=== PATIENT | female | born 1990 | race Caucasian/White ===

== ENCOUNTER → 2016-08-15 | Outpatient (CLI) | payer OTHER ==
--- NOTE | 2016-08-15 21:27 | US ---
EXAMINATION TYPE: US pelvis complete transvag DATE OF EXAM: 08/15/2016 6:35 PM COMPARISON: Prior in PACS pelvic ultrasound June 10, 2014 CLINICAL HISTORY: R10.2 Pelvic Pain. TECHNIQUE: Transvaginal (TV) and Transabdominal (TA) pelvic ultrasound. Date of LMP: Irregular cycles, spotting today- 08/15/2016 EXAM MEASUREMENTS: Uterus: 7.4 x 4.0 x 4.4 cm Endometrial Stripe: 1.1 cm Right Ovary: 4.2 x 2.7 x 3.1 cm Left Ovary: 2.8 x 1.4 x 2.0 cm TECHNOLOGIST IMPRESSION: 1. Uterus: Anteverted Nabothian cysts visualized within cervix 2. Endometrium: wnl 3. Right Ovary: Cystic area visualized measuring 2.8 x 1.9 x 2.1 cm 4. Left Ovary: wnl 5. Bilateral Adnexa: wnl 6. Posterior cul-de-sac: Small amount of free fluid visualized Uterus is anteverted in shape and within normal limits in size. Endometrial thickness is 11 mm which is within normal limits for secretory phase of menstrual cycle. Some nabothian cysts are seen in the cervix. Tiny amount of free fluid is seen in pelvic cul-de-sac. Both ovaries are identified. Within right ovary there is 2.8 x 1.9 cm oval anechoic lesion consistent with simple small ovarian cyst identified on today's study. IMPRESSION: Endometrial thickness within normal limits. There is new 2.8 cm simple appearing cyst rig ht ovary noted on today's study. Tiny amount of free fluid in pelvic cul-de-sac is nonspecific findin g.
== END | disposition home or self-care (01) ==
LOC: RADUSMAIN 17:53
PROVIDERS: ATTEND Obstetrics & Gynecology
DX: N83.201 Unspecified ovarian cyst, right side (principal)
CPT/HCPCS: 76830; 76856; 93976

== ENCOUNTER → 2016-09-09 | Outpatient (CLI) | payer OTHER ==
[2016-09-09 11:30] LABS: Follicle Stimulating Hormone 8.2 mIU/mL; Prolactin 10.3 ng/mL (3.0-18.6)
[2016-09-09 17:09] LABS: DHEA Sulfate 126.9 ug/dL (26.0-430.0)
== END ==
LOC: LABWHC1 10:45
PROVIDERS: ATTEND Obstetrics & Gynecology
DX: N91.2 Amenorrhea, unspecified (principal)
CPT/HCPCS: 36415; 80061; 82627; 82947; 83001; 83002; 83525; 84146; 84402; 84443

== ENCOUNTER 2016-09-11 10:06 | Emergency (ER) | payer BC, OTHER ==
--- NOTE | 2016-09-11 10:21 | ED ---
General Adult HPI - General Chief complaint: Chest Pain Stated complaint: CHEST PAIN, NAUSEA Time Seen by Provider: 09/11/16 10:20 Source: patient, RN notes reviewed, old records reviewed Mode of arrival: wheelchair Limitations: no limitations - History of Present Illness Initial comments: This is a 26-year-old female the ER for evaluation. Patient comes in the ER for reevaluation nausea vomiting and diarrhea. Patient states symptoms began last night not feeling well, she has had sick contacts with similar symptoms. Patient states it feels like her heart is racing. She denies fever, no change in medications no recent new medications. No travel history no sick contacts no blood in her vomit or stool. - Related Data Home Medications Medication Instructions Recorded Confirmed Aspirin 81 mg PO DAILY 02/01/14 09/11/16 Propranolol [Inderal] 10 mg PO DAILY 02/01/14 09/11/16 Atorvastatin [Lipitor] 10 mg PO HS 02/17/14 09/11/16 Previous Rx's Medication Instructions Recorded Ondansetron [Zofran] 4 mg PO Q8HR PRN #30 tab 09/11/16 Allergies Allergy/AdvReac Type Severity Reaction Status Date / Time [place] Allergy Unknown Verified 09/11/16 10:57 caffeine Allergy MAKES HER Verified 09/11/16 10:57 "TWITCH" garlic Allergy Unknown Verified 09/11/16 10:57 latex Allergy Itching Verified 09/11/16 10:57 Pork/Porcine Containing Allergy Unknown Verified 09/11/16 10:57 Products MUSHROOM Allergy Unknown Uncoded 02/14/16 07:27 SHRIMP Allergy Unknown Uncoded 02/14/16 07:27 Review of Systems ROS Statement: Those systems with pertinent positive or pertinent negative responses have been documented in the HPI. ROS Other: All systems not noted in ROS Statement are negative. Past Medical History Past Medical History: CVA/TIA Additional Past Medical History / Comment(s): polycystic ovaries, irregular heart beat, CYSTS ON KIDNEYS, OCCASIONAL CHESTPAIN , OCCASIONAL SOB. History of Any Multi-Drug Resistant Organisms: None Reported Past Surgical History: Cholecystectomy, Orthopedic Surgery Additional Past Surgical History / Comment(s): LEFT KNEE SURG Past Anesthesia/Blood Transfusion Reactions: Postoperative Nausea & Vomiting ( PONV) Additional Past Anesthesia/Blood Transfusion Reaction / Comment(s): ANXIOUS POST -OP Past Psychological History: No Psychological Hx Reported Smoking Status: Never smoker Past Alcohol Use History: None Reported Past Drug Use History: None Reported General Exam Limitations: no limitations General appearance: alert, in no apparent distress Head exam: Present: atraumatic, normocephalic, normal inspection Eye exam: Present: normal appearance, PERRL, EOMI. Absent: scleral icterus, conjunctival injection, periorbital swelling ENT exam: Present: normal exam, mucous membranes dry, mucous membranes moist Neck exam: Present: normal inspection. Absent: tenderness, meningismus, lymphadenopathy Respiratory exam: Present: normal lung sounds bilaterally. Absent: respiratory distress, wheezes, rales, rhonchi, stridor Cardiovascular Exam: Present: normal rhythm, tachycardia, normal heart sounds. Absent: systolic murmur, diastolic murmur, rubs, gallop, clicks GI/Abdominal exam: Present: soft, normal bowel sounds. Absent: distended, tenderness, guarding, rebound, rigid Extremities exam: Present: normal inspection, full ROM, normal capillary refill. Absent: tenderness, pedal edema, joint swelling, calf tenderness Back exam: Present: normal inspection Neurological exam: Present: alert, oriented X3, CN II-XII intact Psychiatric exam: Present: normal affect, normal mood Skin exam: Present: warm, dry, intact, normal color. Absent: rash Course Vital Signs 09/11/16 09/11/16 09/11/16 10:08 10:21 10:43 Temperature 97.1 F L Pulse Rate 121 H 104 H Pulse Rate [ 119 H Area Field Person ] Respiratory 18 15 Rate Blood Pressure 126/75 102/60 O2 Sat by Pulse 97 96 Oximetry - Reevaluation(s) Reevaluation #1: 09/11/16 11:35 At this point patient's symptoms are controlled EKG Findings - EKG Comments: EKG Findings:: EKG shows sinus tachycardia rate of 118, AK 160, QRS 78, QTC 456 Medical Decision Making - Medical Decision Making 26-year-old year with gastroneuritis, patient will be discharged home with antiemetics and okay to discharge home - Lab Data Result diagrams: 09/11/16 10:22 09/11/16 10:22 Lab Results 09/11/16 09/11/16 09/11/16 Range/Units 10:22 10:22 11:00 WBC 8.0 (3.8-10.6) k/uL RBC 5.82 H (3.80-5.40) m/uL Hgb 16.0 (11.4-16.0) gm/dL Hct 49.6 H (34.0-46.0) % MCV 85.1 (80.0-100.0) fL MCH 27.5 (25.0-35.0) pg MCHC 32.3 (31.0-37.0) g/dL RDW 12.5 (11.5-15.5) % Plt Count 217 (150-450) k/uL Neutrophils % 88 % Lymphocytes % 6 % Monocytes % 4 % Eosinophils % 1 % Basophils % 0 % Neutrophils # 7.0 (1.3-7.7) k/uL Lymphocytes # 0.5 L (1.0-4.8) k/uL Monocytes # 0.3 (0-1.0) k/uL Eosinophils # 0.1 (0-0.7) k/uL Basophils # 0.0 (0-0.2) k/uL Sodium 139 (137-145) mmol/L Potassium 4.0 (3.5-5.1) mmol/L Chloride 99 (98-107) mmol/L Carbon Dioxide 22 (22-30) mmol/L Anion Gap 18 mmol/L BUN 15 (7-17) mg/dL Creatinine 0.55 (0.52-1.04) mg/dL Est GFR (MDRD) Af Amer >60 (>60 ml/min/1.73 sqM) Est GFR (MDRD) Non-Af >60 (>60 ml/min/1.73 sqM) Glucose 385 H (74-99) mg/dL Calcium 9.3 (8.4-10.2) mg/dL Phosphorus 4.6 H (2.5-4.5) mg/dL Magnesium 1.6 (1.6-2.3) mg/dL Total Bilirubin 1.5 H (0.2-1.3) mg/dL AST 31 (14-36) U/L ALT 55 H (9-52) U/L Alkaline Phosphatase 90 (38-126) U/L Total Protein 8.0 (6.3-8.2) g/dL Albumin 4.5 (3.5-5.0) g/dL Urine Color Yellow Urine Appearance Clear (Clear) Urine pH 5.5 (5.0-8.0) Ur Specific [place] 1.035 (1.001-1.035) Urine Protein 1+ H (Negative) Urine Glucose (UA) 4+ H (Negative) Urine Ketones 1+ H (Negative) Urine Blood Trace H (Negative) Urine Nitrate Negative (Negative) Urine Bilirubin Negative (Negative) Urine Urobilinogen <2.0 (<2.0) mg/dL Ur Leukocyte Esterase Small H (Negative) Urine RBC 8 H (0-5) /hpf Urine WBC 5 (0-5) /hpf Ur Squamous Epith Cells 5 H (0-4) /hpf Urine Bacteria Rare H (None) /hpf Disposition Clinical Impression: Gastroenteritis, Nausea & vomiting Disposition: HOME SELF-CARE Condition: Good Instructions: Abdominal Pain in Children (ED) Prescriptions: Ondansetron [Zofran] 4 mg PO Q8HR PRN #30 tab PRN Reason: Nausea Referrals: Peter Craig MD [Primary Care Provider] - 1-2 days
[2016-09-11] MEDS: ONDANSETRON 4 MG/2 ML VIAL IVP STA ×2 (10:29→11:51)
[2016-09-11] MEDS ORDERED: SODIUM CHLORIDE 0.9% 1,000 ML IV STA (10:30)
[2016-09-11] MEDS ORDERED: ACETAMINOPHEN IV (For NPO) 1,000 MG in EMPTY BAG 1 BAG IVPB STA (10:30)
[2016-09-11] MEDS ORDERED: KETOROLAC 30 MG/ML 1 ML VIAL IVP STA (10:30)
[2016-09-11] MEDS ORDERED: PANTOPRAZOLE 40 MG/10 ML VIAL IVP STA (10:30)
[2016-09-11 10:41] LABS: Basophils % (A) 0 %; CH 28.6; CHCM 33.8; Eosinophils # (A) 0.1 k/uL (0-0.7); Eosinophils % (A) 1 %; HCT 49.6 % (34.0-46.0); HDW 2.64; Luc # (Auto) 0.09; Luc % (Auto) 1; Lymphocytes # (A) 0.5 k/uL (1.0-4.8); Lymphocytes % (A) 6 %; MCH 27.5 pg (25.0-35.0); MCHC 32.3 g/dL (31.0-37.0); MCV 85.1 fL (80.0-100.0); Mean Platelet Volume 9.1; Monocytes # (A) 0.3 k/uL (0-1.0); Monocytes % (A) 4 %; Neutrophils % (A) 88 %; RBC 5.82 m/uL (3.80-5.40); RDW 12.5 % (11.5-15.5); WBC (Perox) 7.84
[2016-09-11 10:57] LABS: ALT 55 U/L (9-52); AST 31 U/L (14-36); Alkaline Phosphatase 90 U/L (38-126); Anion Gap 18 mmol/L; Blood Urea Nitrogen 15 mg/dL (7-17); Calcium 9.3 mg/dL (8.4-10.2); Carbon Dioxide 22 mmol/L (22-30); Chloride 99 mmol/L (98-107); Glucose 385 mg/dL (74-99); Magnesium 1.6 mg/dL (1.6-2.3); Non-African American GFR(MDRD) >60 (>60 ml/min/1.73 sqM); Phosphorous 4.6 mg/dL (2.5-4.5); Sodium 139 mmol/L (137-145); Total Bilirubin 1.5 mg/dL (0.2-1.3)
[2016-09-11 11:31] LABS: Appearance,Urine Clear (Clear); Bacteria,Urine Rare /hpf; Bilirubin,Urine Negative (Negative); Glucose,Urine (UA) 4+ (Negative); Ketones,Urine 1+ (Negative); Leukocyte Esterase,Urine Small (Negative); Nitrite,Urine Negative (Negative); PH, Urine 5.5 (5.0-8.0); Particle Count 3172; Protein,Urine 1+ (Negative); RBC,Urine 8 /hpf (0-5); Specific Gravity,Urine 1.035 (1.001-1.035); Squamous Epithelial Cell,Urine 5 /hpf (0-4); UA Billing (MACRO vs. MICRO) MICRO; Urobilinogen,Urine <2.0 mg/dL (<2.0); WBC,Urine 5 /hpf (0-5)
[2016-09-11 11:50] VITALS: RESP 18
[2016-09-11 12:26] VITALS: BP 98/54; PULSE 80; TEMP 97.7
== END 2016-09-11 12:37 | disposition home or self-care (01) ==
LOC: EC 10:06
DX: K52.9 Noninfective gastroenteritis and colitis, unspecified (principal); Z79.82 Long term (current) use of aspirin; Z79.899 Other long term (current) drug therapy; Z91.018 Allergy to other foods; Z91.040 Latex allergy status; Z91.013 Allergy to seafood; Z91.02 Food additives allergy status; I49.9 Cardiac arrhythmia, unspecified; Z86.73 Personal history of transient ischemic attack (TIA), and cerebral infarction without residual deficits
CPT/HCPCS: 99285; 96365; 96375 ×3; 96361 ×2; 36415; 93005; 80053; 83735; 84100; 85025; 81001; 87086; J2405; J1885; J0131; C9113; 74022; 82009; 82150; 83036; 83690; 84703; 87328; 87329; 96372; 96374; 96376

== ENCOUNTER 2016-09-11 13:44 | Observation (INO) | payer BC ==
[2016-09-11] MEDS ORDERED: SODIUM CHLORIDE 0.9% 1,000 ML IV STA ×2 (15:04)
[2016-09-11] MEDS ORDERED: METOCLOPRAMIDE 5 MG/ML 2 ML VIAL IVP STA (15:04)
[2016-09-11] MEDS ORDERED: INSULIN REGULAR 100 UNIT/ML VIAL SQ STA (15:07)
[2016-09-11 15:29] LABS: Glucose,Whole Blood 316 mg/dL (75-99)
[2016-09-11 15:45] LABS: Amylase <30 U/L (30-110)
[2016-09-11 15:56] LABS: HCG,Qualitative Serum Not Detected
--- NOTE | 2016-09-11 16:39 | XR ---
EXAMINATION TYPE: XR abdomen acute w cxr DATE OF EXAM: 09/11/2016 4:27 PM COMPARISON: NONE HISTORY: Pain TECHNIQUE: Supine, upright, and left side down lateral decubitus views of the abdomen are obtained. FINDINGS: There is no evidence for pneumoperitoneum. The bowel gas pattern is unremarkable as there is air throughout nondilated small and large bowel. No sizeable air fluid levels. No mass effects are seen. No unusual calcifications. Scoliotic curvature noted. IMPRESSION: Unremarkable study
--- NOTE | 2016-09-11 16:58 | ED ---
General Adult HPI - General Chief complaint: Recheck/Abnormal Lab/Rx Stated complaint: Sent by Dr Alex/ketoacidosis Time Seen by Provider: 09/11/16 14:52 Source: patient Mode of arrival: ambulatory Limitations: no limitations - History of Present Illness Initial comments: This 26-year-old white female presents complaining of nausea vomiting and diarrhea. This came on last evening. It occurred after eating dinner. She states that she had some sick contacts recently. She complains of a diffuse abdominal pain as well. She denies any fever or chills. She denies any recent known infections. She was seen in the emergency department this morning and was hydrated and received antiemetics. She had a laboratory workup which did show an elevation of the blood sugar at 385. She was feeling much improved after treatment in the ER and was on the way home. She did receive a call from Dr. Santo from [facility]. She had a fasting blood glucose done this past weekend and apparently the blood sugar is quite elevated. They sent her back to the emergency department for further evaluation and treatment. She relates that while she was feeling much improved earlier today after her visit her nausea and vomiting has recurred. She denies any history of previous diabetes. 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 - Related Data Home Medications Medication Instructions Recorded Confirmed Aspirin 81 mg PO DAILY 02/01/14 09/11/16 Propranolol [Inderal] 10 mg PO DAILY 02/01/14 09/11/16 Atorvastatin [Lipitor] 10 mg PO HS 02/17/14 09/11/16 Previous Rx's Medication Instructions Recorded Ondansetron [Zofran] 4 mg PO Q8HR PRN #30 tab 09/11/16 Allergies Allergy/AdvReac Type Severity Reaction Status Date / Time [place] Allergy Unknown Verified 09/11/16 14:50 caffeine Allergy MAKES HER Verified 09/11/16 14:50 "TWITCH" garlic Allergy Unknown Verified 09/11/16 14:50 latex Allergy Itching Verified 09/11/16 14:50 Mushroom Allergy Unknown Verified 09/11/16 14:50 Pork/Porcine Containing Allergy Unknown Verified 09/11/16 14:50 Products shellfish derived [Shellfish] Allergy Unknown Verified 09/11/16 14:50 Review of Systems ROS Statement: Those systems with pertinent positive or pertinent negative responses have been documented in the HPI. ROS Other: All systems not noted in ROS Statement are negative. Past Medical History Past Medical History: CVA/TIA Additional Past Medical History / Comment(s): polycystic ovaries, irregular heart beat, CYSTS ON KIDNEYS, OCCASIONAL CHESTPAIN , OCCASIONAL SOB. History of Any Multi-Drug Resistant Organisms: None Reported Past Surgical History: Cholecystectomy, Orthopedic Surgery Additional Past Surgical History / Comment(s): LEFT KNEE SURG Past Anesthesia/Blood Transfusion Reactions: Postoperative Nausea & Vomiting ( PONV) Additional Past Anesthesia/Blood Transfusion Reaction / Comment(s): ANXIOUS POST -OP Past Psychological History: No Psychological Hx Reported Smoking Status: Never smoker Past Alcohol Use History: None Reported Past Drug Use History: None Reported General Exam - General Exam Comments Initial Comments: GENERAL: The patient is well nourished and well hydrated. VITAL SIGNS: Heart rate, blood pressure, respiratory rate reviewed as recorded in nurse's notes. EYES: Pupils are round and reactive. Extraocular movements are intact. No conjunctival / lid redness or swelling. ENT: No external evidence of injury, swelling, or ecchymosis. Airway is patent. Throat is clear. NECK: Nontender. No swelling or evidence of injury. No subcutaneous emphysema. Trachea is midline. No thyroid mass. HEART: Regular rate and rhythm. Good peripheral pulses. LUNGS/CHEST: Breath sounds clear and equal bilaterally. No rales, rhonchi, or wheezes. No ecchymosis, subcutaneous emphysema, or tenderness. ABDOMEN: There is mild tenderness to the abdomen diffusely. No peritoneal signs. No abdominal wall swelling or ecchymosis. EXTREMITIES: No extremity tenderness. Normal muscle tone and function. No thoracolumbar tenderness. NEUROLOGIC: Sensation is grossly intact. Cranial nerve exam reveals face is symmetrical, tongue is midline, speech is clear. SKIN: No abrasions or ecchymosis is noted. No induration or masses noted. PSYCHIATRIC: Alert and oriented. Appropriate behavior and judgment. Limitations: no limitations Course Vital Signs 09/11/16 14:22 Temperature 98.0 F Pulse Rate 99 Respiratory 18 Rate Blood Pressure 113/72 O2 Sat by Pulse 97 Oximetry Medical Decision Making - Medical Decision Making The patient was seen and examined. All diagnostics were reviewed. The old records from earlier today were also reviewed. Her blood sugar is still elevated and she received some insulin subcu. She also receives an IV with IV fluid hydration and Reglan for nausea. It is felt as though she has new-onset diabetes and will need treatment for this. In addition she has failed outpatient treatment for her nausea and vomiting and diarrhea issues. Is felt as though she will require admission to the hospital. Case will be discussed with internal medicine in the near future and patient will be admitted to the general medical floor for definitive treatment. - Lab Data Lab Results 09/11/16 09/11/16 Range/Units 15:15 15:24 POC Glucose (mg/dL) 316 H (75-99) mg/dL POC Glu [place]ania No Amylase <30 L (30-110) U/L Lipase 63 (23-300) U/L HCG, Qual Not Detected Disposition Clinical Impression: Nausea vomiting and diarrhea, Gastroenteritis, Dehydration, Diabetes mellitus, new onset, Acute hyperglycemia, Abdominal pain, Solitary kidney, congenital Disposition: ADMITTED IP TO THIS [facility] Condition: Fair Time of Disposition: 16:57 Decision Date: 09/11/16 Decision Time: 16:57
[2016-09-11] MEDS ORDERED: ONDANSETRON 4 MG/2 ML VIAL IVP PRN (17:03)
[2016-09-11] MEDS ORDERED: NALOXONE 0.4 MG/ML 1 ML VIAL IV PRN (17:03)
[2016-09-11] MEDS ORDERED: HYDROmorphone 1 MG/ML 1 ML SYRINGE IV PRN (17:03)
[2016-09-11] MEDS ORDERED: ACETAMINOPHEN TAB 325 MG TAB PO PRN (17:03)
[2016-09-11] MEDS ORDERED: METOCLOPRAMIDE 5 MG/ML 2 ML VIAL IVP PRN (17:07)
[2016-09-11 18:12] LABS: Glucose,Whole Blood 254 mg/dL (75-99)
[2016-09-11 20:31] LABS: Glucose,Whole Blood 225 mg/dL (75-99)
[2016-09-11] MEDS: ATORVASTATIN 10 MG TAB PO SCH (21:00)
[2016-09-11] MEDS: INSULIN LISPRO (humaLOG) 300 UNIT/3 ML VIAL SQ SCH (21:01)
[2016-09-11 22:47] LABS: Hemoglobin A1C 11.1 % (4.2-6.1)
[2016-09-11] MEDS: ENOXAPARIN 40 MG/0.4 ML SYRINGE SQ SCH (22:56)
[2016-09-12 02:10] LABS: Glucose,Whole Blood 224 mg/dL (75-99)
[2016-09-12 07:05] LABS: Glucose,Whole Blood 243 mg/dL (75-99)
[2016-09-12 07:43] LABS: ALT 59 U/L (9-52); AST 38 U/L (14-36); Alkaline Phosphatase 60 U/L (38-126); Anion Gap 10 mmol/L; Blood Urea Nitrogen 9 mg/dL (7-17); Calcium 7.8 mg/dL (8.4-10.2); Carbon Dioxide 23 mmol/L (22-30); Chloride 107 mmol/L (98-107); Glucose 251 mg/dL (74-99); Non-African American GFR(MDRD) >60 (>60 ml/min/1.73 sqM); Potassium 3.6 mmol/L (3.5-5.1); Sodium 140 mmol/L (137-145); Total Bilirubin 0.9 mg/dL (0.2-1.3); Total Protein 6.2 g/dL (6.3-8.2)
[2016-09-12] MEDS: INSULIN LISPRO (humaLOG) 300 UNIT/3 ML VIAL SQ SCH ×4 (07:58→21:46)
[2016-09-12] MEDS: PROPRANOLOL 10 MG TAB PO SCH (08:00)
[2016-09-12] MEDS: ASPIRIN 81 MG CHEW PO SCH (08:00)
[2016-09-12] MEDS: ENOXAPARIN 40 MG/0.4 ML SYRINGE SQ SCH (08:00)
[2016-09-12] MEDS: PANTOPRAZOLE 40 MG/10 ML VIAL IV SCH (08:00)
[2016-09-12 08:23] LABS: Basophils % (A) 0 %; CH 28.3; Eosinophils # (A) 0.1 k/uL (0-0.7); Eosinophils % (A) 2 %; HDW 2.68; HGB 13.5 gm/dL (11.4-16.0); Luc # (Auto) 0.11; Luc % (Auto) 3; Lymphocytes # (A) 1.2 k/uL (1.0-4.8); Lymphocytes % (A) 32 %; MCH 27.7 pg (25.0-35.0); MCHC 32.2 g/dL (31.0-37.0); MCV 86.1 fL (80.0-100.0); Mean Platelet Volume 8.1; Monocytes # (A) 0.2 k/uL (0-1.0); Monocytes % (A) 5 %; Neutrophils # (A) 2.1 k/uL (1.3-7.7); Neutrophils % (A) 58 %; RBC 4.87 m/uL (3.80-5.40); RDW 12.5 % (11.5-15.5); WBC 3.7 k/uL (3.8-10.6)
[2016-09-12] MEDS ORDERED: INSULIN NPL/INSULIN LISPRO 100 UNIT/ML 10 ML VIAL (Humalog 75/25) SQ SCH (09:00)
[2016-09-12] MEDS ORDERED: ENOXAPARIN 40 MG/0.4 ML SYRINGE SQ SCH (09:00)
--- NOTE | 2016-09-12 10:11 | HP ---
DATE OF ADMISSION: 09/11/2016 PRESENTING COMPLAINT: Diarrhea. HISTORY OF PRESENTING COMPLAINT: This is a pleasant 26-year-old patient of Dr. Craig out of [facility]. Patient has diagnosis of polycystic ovarian syndrome. Patient only has one kidney. Her other destroyed by cyst. She thinks she has a diagnosis of polycystic kidney disease. The patient had high sugars in the past and was taking metformin which gave her diarrhea; hence, she stopped taking it. Patient had pizza last night and developed severe diarrhea. No blood. Diffuse abdominal pain, nausea, no vomiting. Did not have fever. Came to the ER and found to have sugars up in the 300s. Serum acetone was negative. Patient does get up at night at least 3 or 4 times a week, which has been going on for a long time. REVIEW OF SYSTEMS: CONSTITUTIONAL: Weak, tired, and dizzy. HEENT: Dry mucous membrane. NECK: None. RESPIRATORY: None. CARDIOVASCULAR: None. GASTROINTESTINAL: As above. GENITOURINARY: None. MUSCULOSKELETAL: None. DERMATOLOGICAL: None. HEMATOLOGICAL: None. LYMPHATIC: None. PSYCHIATRY: None. NEUROLOGICAL: None. Past medical history of polycystic ovarian syndrome, irregular heartbeat, kidney cysts, mini stroke questionable. PAST SURGICAL HISTORY: Cholecystectomy, left knee meniscal surgery, ACL surgery. SOCIAL HISTORY: , has no children of her own. Adopted children. Patient works as licensed acupuncturist. No alcohol. No smoking. FAMILY HISTORY: Mother had gestational diabetes. HOME MEDICATIONS: 1. Inderal 10 mg p.o. daily. 2. Zofran 4 mg p.o. q.8 p.r.n. 3. Lipitor 10 mg p.o. q.h.s. 4. Aspirin 81 mg p.o. daily. ALLERGY TO ALMOND, CAFFEINE, GARLIC, LATEX, MUSHROOM, PORK, SHELLFISH. On examination, temperature 98, pulse 99, respirations 18, blood pressure 103/72, pulse 97% on room air. GENERAL APPEARANCE: Overweight BMI of 34.5, lying in bed. EYES: Pupils equal. Conjunctivae normal. HEENT: Oral cavity dry. Mucous membranes otherwise normal. NECK: JVD not raised. Mass not palpable. RESPIRATORY: Effort normal. Lungs with fair entry. CARDIOVASCULAR: ( ) edema. ABDOMEN: Soft, diffuse tenderness. No guarding or rigidity. Liver and spleen not palpable. LYMPHATIC: No lymph nodes palpable in neck or axillae. PSYCHIATRIC: Alert and oriented x3. Mood and affect normal. INVESTIGATIONS: Glucose 316, amylase less than 30, lipase 63. hCG negative. Serum acetone negative. ASSESSMENT: 1. Acute severe gastroenteritis. This could be food poisoning. Patient did have [employer] pizza. 2. New diagnosis of diabetes mellitus, could be type 1 given the young age, though would have expect patient to be ketotic. 3. Obesity, body mass index of 34.5. 4. Polycystic ovarian syndrome. PLAN: Patient will be aggressively hydrated. Patient was put on clear liquids. Stool will be sent off for ova and parasites. Will start the patient on 50 units of 75/25 twice a day. We will get diabetic education and will have the patient see dietitian and take it from there.
[2016-09-12 11:21] LABS: Glucose,Whole Blood 228 mg/dL (75-99)
[2016-09-12 11:42] VITALS: BMI 34.4
[2016-09-12 16:49] LABS: Glucose,Whole Blood 98 mg/dL (75-99)
[2016-09-12 20:34] LABS: Glucose,Whole Blood 127 mg/dL (75-99)
[2016-09-12] MEDS: INSULIN NPL/INSULIN LISPRO 100 UNIT/ML 10 ML VIAL (Humalog 75/25) SQ SCH (21:45)
[2016-09-12] MEDS: ATORVASTATIN 10 MG TAB PO SCH (21:46)
[2016-09-12 22:59] VITALS: RESP 16
--- NOTE | 2016-09-12 23:19 | PN ---
DATE OF SERVICE: 09/12/2016 PRESENTING COMPLAINT: Diarrhea, new onset of diabetes. INTERVAL HISTORY: This patient presented with severe gastroenteritis and is actually getting better. Also a new diagnosis of diabetes mellitus, type 1. Patient was started on 70/30 today. Feeling somewhat better. Sugars have been a little bit up and down. is at the bedside. Diabetic education was done. Review of systems done for constitutional, cardiovascular, GI, pulmonary; relevant findings as above. Current medications include Humalog Mix 75/25, 15 units twice a day. On examination, temperature 98.7, pulse 75, respiration 18, blood pressure 100/57, pulse ox 96% on room air. GENERAL APPEARANCE: Sitting up, not in distress. EYES: Pupils equal. Conjunctivae normal. NECK: JVD not raised. Mass not palpable. RESPIRATORY: Effort normal. Lungs are clear. CARDIOVASCULAR: First and second seconds normal. No edema. ABDOMEN: Soft, nontender. Liver and spleen not palpable. PSYCHIATRY: Alert and oriented x3. Mood and affect normal. INVESTIGATIONS: Accu-Cheks are noted, 243, 228, 98. ASSESSMENT: 1. Acute severe gastroenteritis/food poisoning, improved. 2. Diabetes mellitus, type 1; new diagnosis. 3. Obesity; body mass index 34.5. 4. Polycystic ovarian syndrome. PLAN: Continue with the current dose of 70/25 insulin. Will see how the sugars do and then will decide what dose to send the patient home on.
[2016-09-13 02:14] LABS: Glucose,Whole Blood 136 mg/dL (75-99)
[2016-09-13 06:55] LABS: Glucose,Whole Blood 186 mg/dL (75-99)
[2016-09-13 07:48] VITALS: BP 102/59; PULSE 79; TEMP 97.9
[2016-09-13] MEDS: ENOXAPARIN 40 MG/0.4 ML SYRINGE SQ SCH (08:11)
[2016-09-13] MEDS: INSULIN LISPRO (humaLOG) 300 UNIT/3 ML VIAL SQ SCH ×2 (08:11→12:15)
[2016-09-13] MEDS: ASPIRIN 81 MG CHEW PO SCH (08:13)
[2016-09-13] MEDS: PROPRANOLOL 10 MG TAB PO SCH (08:13)
[2016-09-13] MEDS: PANTOPRAZOLE 40 MG/10 ML VIAL IV SCH (08:13)
[2016-09-13] MEDS: INSULIN NPL/INSULIN LISPRO 100 UNIT/ML 10 ML VIAL (Humalog 75/25) SQ SCH (08:23)
[2016-09-13 12:06] LABS: Glucose,Whole Blood 201 mg/dL (75-99)
[2016-09-14] MEDS ORDERED: PANTOPRAZOLE 40 MG TABLET PO SCH (07:30)
--- NOTE | 2016-09-14 08:44 | DS ---
DATE OF ADMISSION: 09/11/2016 DATE OF DISCHARGE: 09/13/2016 FINAL DIAGNOSES: 1. Acute severe gastroenteritis/food poisoning present on admission. 2. Diabetes mellitus type 1, new diagnosis. 3. Obesity, body mass index of 34.5. 4. Polycystic ovarian syndrome. HOSPITAL COURSE: This patient presented with what appeared to be acute gastroenteritis that did get better. Sugars have been running high. Patient was nonketotic when she presented. Patient was put on 70/30. Today care was discussed in detail with the patient, talking about the meal size, timing insulin, how to keep a log. On examination, lungs are clear. CARDIOVASCULAR: First and second sounds normal. Patient's Hb-A1c was 11.1. DISCHARGE MEDICATIONS: 1. Aspirin 81 mg daily. 2. Inderal 10 mg a day. 3. Lipitor 10 mg q.h.s. 4. Zofran 4 mg p.o. q.8 p.r.n. 5. NovoLog Mix 70/30 twenty units with breakfast, six units with lunch and twenty units before supper . DIET: Carbohydrate consistent. Follow with Dr. Craig on 09/20/2016. Follow with Dr. Akanksha Tyler in 1 week. DC planning more than 35 minutes.
== END 2016-09-13 17:30 | disposition home or self-care (01) ==
LOC: EC 13:44 → 5MS5E 17:03
PROVIDERS: ADMIT Hospitalist; ATTEND Hospitalist
DX: K52.9 Noninfective gastroenteritis and colitis, unspecified (principal); E10.65 Type 1 diabetes mellitus with hyperglycemia; T62.91XA Toxic effect of unspecified noxious substance eaten as food, accidental (unintentional), initial encounter; E66.9 Obesity, unspecified; Z68.34 Body mass index [BMI] 34.0-34.9, adult; Q60.0 Renal agenesis, unilateral; E28.2 Polycystic ovarian syndrome; E86.0 Dehydration; I49.9 Cardiac arrhythmia, unspecified; Z79.899 Other long term (current) drug therapy; Z79.82 Long term (current) use of aspirin; Z86.73 Personal history of transient ischemic attack (TIA), and cerebral infarction without residual deficits; Z91.040 Latex allergy status; Z91.018 Allergy to other foods; Z91.013 Allergy to seafood
CPT/HCPCS: 36415; 80053; 82150; 83036; 82009; 83690; 85025; 84703; 87329; 87328; 74022; 96374; 96375; 96361 ×3; 99285; G0378 ×3; J2765; J2405; J1650 ×3; C9113 ×2; 96372; 96376

== ENCOUNTER 2017-05-16 23:32 | Emergency (ER) | payer BC ==
[2017-05-17] MEDS ORDERED: IPRATROPIUM-ALBUTEROL 3 ML NEB INHALATION STA (00:05)
[2017-05-17] MEDS ORDERED: MECLIZINE 12.5 MG TAB PO STA (00:05)
[2017-05-17] MEDS ORDERED: methylPREDNISolone SOD SUCCI 125 MG/2 ML VIAL IV STA (00:05)
--- NOTE | 2017-05-17 00:33 | ED ---
General Adult HPI - General Chief complaint: Chest Pain Stated complaint: L Ear Clogged Time Seen by Provider: 05/16/17 23:41 Source: patient, RN notes reviewed, old records reviewed Mode of arrival: ambulatory Limitations: no limitations - History of Present Illness Initial comments: 26-year-old female presents emergency Department chief complaint of left ear pain and clogging, upper respiratory congestion, cough for 3 weeks. Patient reports that she's had some shortness of breath and chest pain episode with her cough today. She denies any known history of asthma. She states that she has no history of sick contacts. She reports her cough is been dry, nonproductive. Patient is diabetic. Patient denies any recent fever, chills, back pain, abdominal pain, nausea vomiting, numbness or tingling, dysuria or hematuria, constipation or diarrhea, headaches or visual changes, or any other current symptoms - Related Data Home Medications Medication Instructions Recorded Confirmed Aspirin 81 mg PO DAILY 02/01/14 05/16/17 Propranolol [Inderal] 10 mg PO DAILY 02/01/14 05/16/17 Atorvastatin [Lipitor] 10 mg PO HS 02/17/14 05/16/17 Previous Rx's Medication Instructions Recorded Ondansetron [Zofran] 4 mg PO Q8HR PRN #30 tab 09/11/16 Insulin Aspart Protam & Aspart 100 unit SQ DIRECTED #1 09/13/16 [NovoLOG MIX 70-30 Flexpen] insuln.pen Albuterol Inhaler [Ventolin Hfa 1 - 2 puff INHALATION Q6HR PRN #1 05/17/17 Inhaler] inhaler Azithromycin [Zithromax Z-pack] 250 mg PO DIRECTED #6 tab 05/17/17 Ketorolac [Toradol] 10 mg PO Q6HR #12 tab 05/17/17 Promethazine/Dextromethorphan 5 ml PO TID #120 ml 05/17/17 [Phenergan DM Syrup] predniSONE 50 mg PO DAILY #5 tablet 05/17/17 Allergies Allergy/AdvReac Type Severity Reaction Status Date / Time [place] Allergy Unknown Verified 05/16/17 23:35 caffeine Allergy MAKES HER Verified 05/16/17 23:35 "TWITCH" garlic Allergy Unknown Verified 05/16/17 23:35 latex Allergy Rash/Hives Verified 05/16/17 23:35 Mushroom Allergy Unknown Verified 05/16/17 23:35 peanut Allergy Rash/Hives Verified 05/16/17 23:35 Pork/Porcine Containing Allergy Unknown Verified 05/16/17 23:35 Products shellfish derived [Shellfish] Allergy Unknown Verified 05/16/17 23:35 tree nut [Nut] Allergy Rash/Hives Verified 05/16/17 23:35 Review of Systems ROS Statement: Those systems with pertinent positive or pertinent negative responses have been documented in the HPI. ROS Other: All systems not noted in ROS Statement are negative. Past Medical History Past Medical History: CVA/TIA Additional Past Medical History / Comment(s): polycystic ovaries, irregular heart beat, CYSTS ON KIDNEYS, OCCASIONAL CHESTPAIN , OCCASIONAL SOB.(UTI-ECOLI) , TIA History of Any Multi-Drug Resistant Organisms: None Reported Past Surgical History: Cholecystectomy, Orthopedic Surgery Additional Past Surgical History / Comment(s): LEFT KNEE SURG MENISCUS, ACL. Past Anesthesia/Blood Transfusion Reactions: Postoperative Nausea & Vomiting ( PONV) Additional Past Anesthesia/Blood Transfusion Reaction / Comment(s): ANXIOUS POST -OP Past Psychological History: No Psychological Hx Reported Smoking Status: Never smoker Past Alcohol Use History: None Reported Past Drug Use History: None Reported - Past Family History Father Family Medical History: No Reported History Mother Family Medical History: CVA/TIA, Diabetes Mellitus, Myocardial Infarction ([place]) General Exam - General Exam Comments Initial Comments: Well-appearing 26-year-old female. No distress. Limitations: no limitations General appearance: alert, in no apparent distress Head exam: Present: atraumatic, normocephalic, normal inspection Eye exam: Present: normal appearance, PERRL, EOMI. Absent: scleral icterus, conjunctival injection, periorbital swelling ENT exam: Present: normal exam, mucous membranes moist Neck exam: Present: normal inspection. Absent: tenderness, meningismus, lymphadenopathy Respiratory exam: Present: normal lung sounds bilaterally. Absent: respiratory distress, wheezes, rales, rhonchi, stridor Cardiovascular Exam: Present: regular rate, normal rhythm, normal heart sounds. Absent: systolic murmur, diastolic murmur, rubs, gallop, clicks GI/Abdominal exam: Present: soft, normal bowel sounds. Absent: distended, tenderness, guarding, rebound, rigid Extremities exam: Present: normal inspection, full ROM, normal capillary refill. Absent: tenderness, pedal edema, joint swelling, calf tenderness Back exam: Present: normal inspection Neurological exam: Present: alert, oriented X3, CN II-XII intact Course Vital Signs 05/16/17 05/17/17 05/17/17 23:34 00:44 00:55 Temperature 97.9 F Pulse Rate 107 H 88 84 Respiratory 20 Rate Blood Pressure 144/61 O2 Sat by Pulse 97 Oximetry 05/17/17 05/17/17 02:10 02:33 Temperature 97.3 F L Pulse Rate 91 Respiratory 18 Rate Blood Pressure 111/59 O2 Sat by Pulse 96 Oximetry Medical Decision Making - Medical Decision Making Patient is a 26-year-old female chief complaint of occasional chest pain, shortness of breath and cough for 3 weeks. Patient did have some minor wheezing noted on initial exam. DuoNeb treatment ordered. Vital signs are all stable. She does have history of diabetes. Patient's labwork was reviewed, mildly elevated white blood count 12.1. Her troponin is negative. EKG is negative. Chest x-ray shows a developing bilateral lower lobe pneumonia. Patient was given IV Rocephin. Will be discharged on azithromycin, and steroids. Patient was also given a [facility] emergency department. Discussed very close follow-up with primary care provider. Discussed if any persistent symptoms continue or should they worsen she needs return to the emergency department for admission. Patient understands treatment plan will comply. Return parameters were discussed. She also states chart with an inhaler, and cough syrup. Written a note for work. - Lab Data Result diagrams: 05/17/17 00:37 Lab Results 05/17/17 05/17/17 Range/Units 00:37 00:37 WBC 12.1 H (3.8-10.6) k/uL RBC 4.38 (3.80-5.40) m/uL Hgb 11.9 (11.4-16.0) gm/dL Hct 36.0 (34.0-46.0) % MCV 82.3 (80.0-100.0) fL MCH 27.2 (25.0-35.0) pg MCHC 33.0 (31.0-37.0) g/dL RDW 14.0 (11.5-15.5) % Plt Count 256 (150-450) k/uL Neutrophils % 77 % Lymphocytes % 15 % Monocytes % 4 % Eosinophils % 3 % Basophils % 0 % Neutrophils # 9.3 H (1.3-7.7) k/uL Lymphocytes # 1.8 (1.0-4.8) k/uL Monocytes # 0.5 (0-1.0) k/uL Eosinophils # 0.4 (0-0.7) k/uL Basophils # 0.0 (0-0.2) k/uL Troponin I <0.012 (0.000-0.034) ng/mL 05/17/17 01:08 EKG shows normal sinus rhythm, ventricular rate of 89 bpm. IA interval 22 ms. QRS duration 80 ms. QT QTc is 370/450 ms. - Radiology Data Radiology results: report reviewed Chest x-ray shows a new bilateral lower lobe pneumonia compared to last exam. Normal heart, there are some infiltrate in the lingula of the left upper lobe. Disposition Clinical Impression: Bilateral pneumonia Disposition: HOME SELF-CARE Condition: Good Instructions: Community Acquired Pneumonia (ED) Additional Instructions: Patient advised to rest, increase her fluid intake. Patient needs to maintain tight control of your blood sugar with insulin sliding scale. Completely anabiotic prescription and use steroids and medicines as prescribed. Patient should follow-up tomorrow morning or the next day with her primary care provider. Return to the emergency department if any alarming signs or symptoms occur. Prescriptions: Albuterol Inhaler [Ventolin Hfa Inhaler] 1 - 2 puff INHALATION Q6HR PRN #1 inhaler PRN Reason: Shortness Of Breath Azithromycin [Zithromax Z-pack] 250 mg PO DIRECTED #6 tab Ketorolac [Toradol] 10 mg PO Q6HR #12 tab predniSONE 50 mg PO DAILY #5 tablet Promethazine/Dextromethorphan [Phenergan DM Syrup] 5 ml PO TID #120 ml Referrals: Peter Craig MD [Primary Care Provider] - 1-2 days Time of Disposition: 01:58
[2017-05-17 00:48] LABS: Basophils % (A) 0 %; CH 26.2; Eosinophils # (A) 0.4 k/uL (0-0.7); Eosinophils % (A) 3 %; HDW 2.64; HGB 11.9 gm/dL (11.4-16.0); Luc # (Auto) 0.09; Luc % (Auto) 1; Lymphocytes # (A) 1.8 k/uL (1.0-4.8); Lymphocytes % (A) 15 %; MCH 27.2 pg (25.0-35.0); MCV 82.3 fL (80.0-100.0); Mean Platelet Volume 8.5; Monocytes # (A) 0.5 k/uL (0-1.0); Monocytes % (A) 4 %; Neutrophils # (A) 9.3 k/uL (1.3-7.7); Neutrophils % (A) 77 %; RBC 4.38 m/uL (3.80-5.40); WBC 12.1 k/uL (3.8-10.6); WBC (Perox) 12.49
[2017-05-17] MEDS ORDERED: KETOROLAC 30 MG/ML 1 ML VIAL IVP STA (00:48)
--- NOTE | 2017-05-17 01:18 | XR ---
EXAMINATION TYPE: XR chest 2V DATE OF EXAM: 05/17/2017 COMPARISON: 09/11/2016 HISTORY: Cough and congestion TECHNIQUE: Frontal and lateral views of the chest are obtained. FINDINGS: Heart size is normal. There is no heart failure. Mediastinum is normal. There is thoracic dextroscoliosis. There is no sign of pleural effusion. There are bilateral lower lobe pulmonary infiltrates. There are chest leads. IMPRESSION: There is new bilateral lower lobe pneumonia compared to last exam. Normal heart. There i s also some infiltrate in the lingula left upper lobe.
[2017-05-17] MEDS ORDERED: cefTRIAXone IN SWFI 1,000 MG/10 ML SYRINGE IVP ONE (01:30)
[2017-05-17] MEDS ORDERED: PROMETHAZ-COD 6.25-10 MG/5 ML 5 ML CUP PO STA (01:52)
[2017-05-17 02:35] VITALS: BP 111/59; PULSE 91; RESP 18; TEMP 97.3
== END 2017-05-17 02:34 | disposition home or self-care (01) ==
LOC: EC 23:32
DX: J18.1 Lobar pneumonia, unspecified organism (principal); D72.829 Elevated white blood cell count, unspecified; H92.02 Otalgia, left ear; H93.8X2 Other specified disorders of left ear; Z79.82 Long term (current) use of aspirin; Z79.899 Other long term (current) drug therapy; Z91.010 Allergy to peanuts; Z91.013 Allergy to seafood; Z91.018 Allergy to other foods; Z91.040 Latex allergy status; Z86.79 Personal history of other diseases of the circulatory system
CPT/HCPCS: 36415; 94640; 93005; 84484; 85025; 71020; 99285; 96374; 96375 ×2; J2930; J0696; J1885

== ENCOUNTER → 2017-11-12 | Outpatient (CLI) | payer BC ==
[2017-11-12 09:07] LABS: ALT 51 U/L (9-52); AST 22 U/L (14-36); Albumin 4.2 g/dL (3.5-5.0); Alkaline Phosphatase 86 U/L (38-126); Anion Gap 15 mmol/L; Blood Urea Nitrogen 12 mg/dL (7-17); Calcium 9.6 mg/dL (8.4-10.2); Carbon Dioxide 25 mmol/L (22-30); Chloride 100 mmol/L (98-107); Glucose 290 mg/dL (74-99); Potassium 4.3 mmol/L (3.5-5.1); Sodium 140 mmol/L (137-145); Total Bilirubin 0.4 mg/dL (0.2-1.3); Total Protein 7.6 g/dL (6.3-8.2)
[2017-11-12 09:24] LABS: T4, Free (Free Thyroxine) 1.26 ng/dL (0.78-2.19)
[2017-11-12 17:05] LABS: C-Peptide 3.06 ng/mL (0.81-3.85)
[2017-11-12 17:43] LABS: ACTH 47.5 pg/mL (0.00-45.99)
== END | disposition home or self-care (01) ==
LOC: LABWHC1 07:35
PROVIDERS: ATTEND Internal Medicine Endocrinology, Diabetes & Metabolism
DX: E11.65 Type 2 diabetes mellitus with hyperglycemia (principal); N91.2 Amenorrhea, unspecified
CPT/HCPCS: 36415; 80053; 82024; 82533; 83001; 83002; 84146; 84439; 84443; 84681

== ENCOUNTER 2018-01-05 17:13 | Emergency (ER) | payer BC ==
[2018-01-05 17:44] VITALS: BP 107/69; PULSE 84; RESP 18; TEMP 96.6
--- NOTE | 2018-01-05 17:53 | ED ---
General Adult HPI - General Chief complaint: Extremity Problem,Nontraumatic Stated complaint: LEFT KNEE INJURY Time Seen by Provider: 01/05/18 17:39 Source: patient, RN notes reviewed Mode of arrival: ambulatory Limitations: no limitations - History of Present Illness Initial comments: Patient 27-year-old female presents to the emergency room today with chief complaint of pain to the left knee. Patient does admit that she's had some pain to the posterior aspect over the last few days. She states that today she noticed that there was a bump to the anterior aspect. Denies any injury or trauma. Patient states worse about possible blood clot as there is family history. Patient states she takes daily aspirin as she has a history of CVA. She also admits to a knee replacement on the left side 10 years ago. Patient denies any other complaints symptoms at this time. Patient denies any recent fever, chills, shortness of breath, chest pain, back pain, abdominal pain, nausea or vomiting, headaches or visual changes, or any other complaints. - Related Data Home Medications Medication Instructions Recorded Confirmed Aspirin 81 mg PO DAILY 02/01/14 05/16/17 Propranolol [Inderal] 10 mg PO DAILY 02/01/14 05/16/17 Atorvastatin [Lipitor] 10 mg PO HS 02/17/14 05/16/17 Previous Rx's Medication Instructions Recorded Ondansetron [Zofran] 4 mg PO Q8HR PRN #30 tab 09/11/16 Insulin Aspart Protam & Aspart 100 unit SQ DIRECTED #1 09/13/16 [NovoLOG MIX 70-30 Flexpen] insuln.pen Albuterol Inhaler [Ventolin Hfa 1 - 2 puff INHALATION Q6HR PRN #1 05/17/17 Inhaler] inhaler Azithromycin [Zithromax Z-pack] 250 mg PO DIRECTED #6 tab 05/17/17 Ketorolac [Toradol] 10 mg PO Q6HR #12 tab 05/17/17 Promethazine/Dextromethorphan 5 ml PO TID #120 ml 05/17/17 [Phenergan DM Syrup] predniSONE 50 mg PO DAILY #5 tablet 05/17/17 Allergies Allergy/AdvReac Type Severity Reaction Status Date / Time [place] Allergy Unknown Verified 01/05/18 17:42 caffeine Allergy MAKES HER Verified 01/05/18 17:42 "TWITCH" garlic Allergy Unknown Verified 01/05/18 17:42 latex Allergy Rash/Hives Verified 01/05/18 17:42 Mushroom Allergy Unknown Verified 01/05/18 17:42 peanut Allergy Rash/Hives Verified 01/05/18 17:42 Pork/Porcine Containing Allergy Unknown Verified 01/05/18 17:42 Products shellfish derived [Shellfish] Allergy Unknown Verified 01/05/18 17:42 tree nut [Nut] Allergy Rash/Hives Verified 01/05/18 17:42 Review of Systems ROS Statement: Those systems with pertinent positive or pertinent negative responses have been documented in the HPI. ROS Other: All systems not noted in ROS Statement are negative. Past Medical History Past Medical History: CVA/TIA Additional Past Medical History / Comment(s): polycystic ovaries, irregular heart beat, CYSTS ON KIDNEYS, OCCASIONAL CHESTPAIN , OCCASIONAL SOB.(UTI-ECOLI) , TIA History of Any Multi-Drug Resistant Organisms: None Reported Past Surgical History: Cholecystectomy, Orthopedic Surgery Additional Past Surgical History / Comment(s): LEFT KNEE SURG MENISCUS, ACL. Past Anesthesia/Blood Transfusion Reactions: Postoperative Nausea & Vomiting ( PONV) Additional Past Anesthesia/Blood Transfusion Reaction / Comment(s): ANXIOUS POST -OP Past Psychological History: No Psychological Hx Reported Smoking Status: Never smoker Past Alcohol Use History: None Reported Past Drug Use History: None Reported - Past Family History Father Family Medical History: No Reported History Mother Family Medical History: CVA/TIA, Diabetes Mellitus, Myocardial Infarction ([place]) General Exam - General Exam Comments Initial Comments: General: The patient is awake and alert, in no distress, and does not appear acutely ill. Neck: The neck is supple, there is no tenderness or JVD. Cardiovascular: There is a regular rate and rhythm. No murmur, rub or gallop is appreciated. Respiratory: Lungs are clear to auscultation, respirations are non-labored, breath sounds are equal. No wheezes, stridor, rales, or rhonchi. Musculoskeletal: Patient does have normal appearance of the left knee surgical incision midline from knee replacement. Mild tenderness to the posterior aspect. Mild tender over the anterior aspect which she states is a bump which feels firm and hard on palpation. No fluctuant area. No redness no swelling. Pulses 2+. Full range of motion. Sensation intact with strength 5/5. Neurological: A&O x 3. CN II-XII intact, There are no obvious motor or sensory deficits. Coordination appears grossly intact. Speech is normal. Skin: Skin is warm and dry and no rashes or lesions are noted. Psychiatric: Normal mood and affect. Limitations: no limitations Course Vital Signs 01/05/18 17:42 Temperature 96.6 F L Pulse Rate 84 Respiratory 18 Rate Blood Pressure 107/69 O2 Sat by Pulse 98 Oximetry Medical Decision Making - Medical Decision Making All show negative for any evidence of DVT. X-rays reviewed and are negative for any acute abnormality. Patient will be discharged home to follow-up orthopedic prescription is no sign of infection. Patient advised return for any other concerns. Disposition Clinical Impression: Knee pain Disposition: HOME SELF-CARE Condition: Good Instructions: Knee Pain (ED) Additional Instructions: Please use medication as discussed. Please follow-up with orthopedic/family doctor in the next 2 days of symptoms have not improved. Please return to emergency room if the symptoms increase or worsen or for any other concerns. Is patient prescribed a controlled substance at d/c from ED?: No Referrals: Peter Craig MD [Primary Care Provider] - 1-2 days Time of Disposition: 18:59
--- NOTE | 2018-01-05 18:36 | XR ---
EXAMINATION TYPE: XR knee complete LT DATE OF EXAM: 01/05/2018 CLINICAL HISTORY: Palpable abnormality of the left knee. TECHNIQUE: Three views of the left knee are obtained. COMPARISON: None. FINDINGS: There is no acute fracture/dislocation evident in left knee. Postsurgical changes are seen as present on the prior exam. The tri-compartment joint spaces demonstrate joint space narrowing and small marginal osteophytes with tibial plateau sclerosis. The overlying soft tissue appears unremar kable. No suspicious osseous lesion or cortical erosion. No periosteal reaction. IMPRESSION: There is no acute fracture or dislocation in the left knee. Moderate tricompartmental ar thropathy, prior postsurgical change, and no evidence of suspicious osseous lesion or cortical erosio n.
--- NOTE | 2018-01-05 18:48 | US ---
EXAMINATION TYPE: US venous doppler duplex LE LT DATE OF EXAM: 01/05/2018 5:46 PM COMPARISON: NONE CLINICAL HISTORY: Pain. left post leg pain x 2 days SIDE PERFORMED: left TECHNIQUE: The lower extremity deep venous system is examined utilizing real time linear array sonog drea with graded compression, doppler sonography and color-flow sonography. VESSELS IMAGED: External Iliac Vein (EIV) Common Femoral Vein Deep Femoral Vein Greater Saphenous Vein * Femoral Vein Popliteal Vein Small Saphenous Vein * Proximal Calf Veins (* superficial vessels) Grayscale, color doppler, spectral doppler imaging performed of the deep veins of the left lower extr emity. There is normal flow, compressibility, vascular waveforms. Left Leg: neg for LLE dvt IMPRESSION: No sonographic evidence of deep venous thrombosis within the left lower extremity.
== END 2018-01-05 19:03 | disposition home or self-care (01) ==
LOC: EC 17:13
DX: M25.562 Pain in left knee (principal); Z86.73 Personal history of transient ischemic attack (TIA), and cerebral infarction without residual deficits; Z96.652 Presence of left artificial knee joint; Z98.890 Other specified postprocedural states; Z79.82 Long term (current) use of aspirin; Z79.899 Other long term (current) drug therapy; Z91.010 Allergy to peanuts; Z91.013 Allergy to seafood; Z91.018 Allergy to other foods; Z91.040 Latex allergy status
CPT/HCPCS: 99284

== ENCOUNTER → 2018-12-04 | Outpatient (CLI) | payer BC ==
--- NOTE | 2018-12-04 15:57 | US ---
EXAMINATION TYPE: US pelvic complete DATE OF EXAM: 12/04/2018 COMPARISON: US CLINICAL HISTORY: R10.2 Pelvic pain. Pt states pelvic pain, more on right side TECHNIQUE: Transabdominal (TA). Transabdominal sonographic images of the pelvis were acquired. Date of LMP: 11/18/2018 EXAM MEASUREMENTS: Uterus: 8.0 x 4.1 x 4.4 cm Endometrial Stripe: 0.8 cm Right Ovary: 2.6 x 2.0 x 2.3 cm Left Ovary: 2.4 x 1.6 x 1.8 cm 1. Uterus: Anteverted wnl 2. Endometrium: wnl 3. Right Ovary: Dominant follicle= 1.8 x 1.7 x 1.3 cm 4. Left Ovary: wnl 5. Bilateral Adnexa: wnl 6. Posterior cul-de-sac: wnl IMPRESSION: Unremarkable pelvic ultrasound. Physiologic dominant follicle within the right ovary is n oted measuring 1.8 cm. This may represent involution of the previously seen cyst or new follicle.
== END ==
LOC: RADUSWWP 15:15
PROVIDERS: ATTEND Obstetrics & Gynecology
DX: R10.2 Pelvic and perineal pain (principal)
CPT/HCPCS: 76856

== ENCOUNTER → 2019-03-05 | Outpatient (CLI) | payer BC ==
[2019-03-05 18:12] LABS: Basophils # (A) 0.1 k/uL (0-0.2); Basophils % (A) 1 %; Eosinophils # (A) 0.2 k/uL (0-0.7); Eosinophils % (A) 2 %; HCT 42.1 % (34.0-46.0); HGB 14.1 gm/dL (11.4-16.0); Lymphocytes # (A) 1.7 k/uL (1.0-4.8); Lymphocytes % (A) 20 %; MCH 28.5 pg (25.0-35.0); MCHC 33.5 g/dL (31.0-37.0); MCV 84.8 fL (80.0-100.0); Mean Platelet Volume 8.2; Monocytes # (A) 0.3 k/uL (0-1.0); Monocytes % (A) 4 %; Neutrophils # (A) 6.2 k/uL (1.3-7.7); Neutrophils % (A) 73 %; Platelet Count 244 k/uL (150-450); RBC 4.97 m/uL (3.80-5.40); RDW 13.4 % (11.5-15.5); WBC 8.6 k/uL (3.8-10.6)
[2019-03-05 18:16] LABS: African American GFR (CKD) >90 (>60 ml/min/1.73 sqM); Anion Gap 11 mmol/L; Blood Urea Nitrogen 11 mg/dL (7-17); Calcium 9.8 mg/dL (8.4-10.2); Carbon Dioxide 27 mmol/L (22-30); Chloride 98 mmol/L (98-107); Glucose 364 mg/dL (74-99); Potassium 4.1 mmol/L (3.5-5.1); Sodium 136 mmol/L (137-145)
== END | disposition home or self-care (01) ==
LOC: LABPAT 16:10
PROVIDERS: ATTEND Obstetrics & Gynecology
DX: Z01.812 Encounter for preprocedural laboratory examination (principal)
CPT/HCPCS: 36415; 80048; 85025; 86850; 86900; 86901

== ENCOUNTER 2019-03-06 06:09 | Day surgery (SDC) | payer BC ==
--- NOTE | 2019-03-05 16:57 | P.HPOB ---
History of Present Illness H&P Date: 03/05/19 Chief Complaint: Cervical dysplasia Patient is a 28-year-old female with MANAN-3 with simple and complex hyperplasia without atypia noted on endometrial biopsy as well. Due to risk of progression and very high risk of recurrence if no treatment is performed, a decision to mov e forward with a hysterectomy was made. Risks/benefits/alternatives to this procedure were discussed with the patient in detail and all questions were answered for her prior to proceeding to the operating room. She is scheduled for a robotic-assisted laparoscopic hysterectomy possible STEFFANIE and possible BSO. I do plan to remove the fallopian tubes however. On physical exam vital signs are stable and afebrile. Heart regular, lungs clear, extremities without pain. Abdomen soft and nontender. Pelvic exam is otherwise unremarkable. Assessment cervical intraepithelial neoplasia with uterine hyperplasia. 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 Past Anesthesia/Blood Transfusion Reactions: Postoperative Nausea & Vomiting (PONV) Additional Past Anesthesia/Blood Transfusion Reaction / Comment(s): ANXIOUS POST-OP Smoking Status: Never smoker - Past Family History Father Family Medical History: No Reported History Mother Family Medical History: CVA/TIA, Diabetes Mellitus, Myocardial Infarction ([place]) Medications and Allergies Home Medications Medication Instructions Recorded Confirmed Type Atorvastatin [Lipitor] 10 mg PO HS 02/17/14 03/05/19 History Aspirin EC [Ecotrin Low Dose] 81 mg PO DAILY 07/25/18 03/05/19 History Insulin Glargine,Hum.rec.anlog 10 unit SQ HS 07/25/18 03/05/19 History [Lantus Solostar] Propranolol HCl 10 mg PO QAM 07/25/18 03/05/19 History Allergies Allergy/AdvReac Type Severity Reaction Status Date / Time [place] Allergy Unknown Verified 03/05/19 08:32 caffeine Allergy MAKES HER Verified 03/05/19 08:32 "TWITCH" garlic Allergy Unknown Verified 03/05/19 08:32 latex Allergy Rash/Hives/ Verified 03/05/19 08:32 itching Mushroom Allergy Unknown Verified 03/05/19 08:32 peanut Allergy Rash/Hives Verified 03/05/19 08:32 Pork/Porcine Containing Allergy Unknown Verified 03/05/19 08:32 Products shellfish derived [Shellfish] Allergy Unknown Verified 03/05/19 08:32 tree nut [Nut] Allergy Rash/Hives Verified 03/05/19 08:32 Exam Osteopathic Statement: *. No significant issues noted on an osteopathic structural exam other than those noted in the History and Physical/Consult. Intake and Output 03/05/19 03/05/19 03/05/19 06:59 14:59 22:59 Other: Weight 99.79 kg - OBG Physical Exam Breast: both: normal (no masses) Abdomen: bowel sounds normal, no diffuse tenderness, no bruit present, no g uarding noted, no hepatomegaly, no splenomegaly, no mass Vulva: both: normal Vagina: normal moisture, no discharge Cervix: no lesion, no discharge Uterus: normal size, normal contour Adnexa: both: normal Anus/Rectum: normal perianal skin, no rectal mass, no hemorrhoids, heme negative
[~2019-03-06 06:09] MED LIST: HYDROmorphone 0.5 MG/0.5 ML SYRINGE IVP PRN; ONDANSETRON 4 MG/2 ML VIAL IVP ONE
[2019-03-06] MEDS: LACTATED RINGERS 1,000 ML IV SCH (06:35)
[2019-03-06 06:40] LABS: Glucose,Whole Blood 283 mg/dL (75-99)
[2019-03-06] MEDS ORDERED: DEXAMETHASONE SOD PHOS (MDV) 100 MG/10 ML VIAL IVP ONE (07:00)
[2019-03-06] MEDS ORDERED: INSULIN ASPART (NovoLOG) 100 UNIT/ML VIAL SQ ONE (07:00)
[2019-03-06 07:04] LABS: Basophils % (A) 0 %; Eosinophils # (A) 0.1 k/uL (0-0.7); Eosinophils % (A) 2 %; HCT 40.4 % (34.0-46.0); HGB 13.5 gm/dL (11.4-16.0); Lymphocytes % (A) 12 %; MCH 28.2 pg (25.0-35.0); MCHC 33.4 g/dL (31.0-37.0); MCV 84.4 fL (80.0-100.0); Mean Platelet Volume 8.6; Monocytes # (A) 0.3 k/uL (0-1.0); Monocytes % (A) 4 %; Neutrophils # (A) 6.3 k/uL (1.3-7.7); Neutrophils % (A) 80 %; Platelet Count 202 k/uL (150-450); RBC 4.79 m/uL (3.80-5.40); RDW 14.6 % (11.5-15.5); WBC 7.8 k/uL (3.8-10.6)
[2019-03-06] MEDS ORDERED: SUCCINYLCHOLINE CHLORIDE 100 MG/5 ML SYR IV ONE (07:28)
[2019-03-06] MEDS ORDERED: GLYCOPYRROLATE 0.2 MG/ML 2 ML VIAL ONE (07:28)
[2019-03-06] MEDS ORDERED: NEOSTIGMINE 1 MG/ML 10 ML VIAL ONE (07:28)
[2019-03-06] MEDS ORDERED: LIDOCAINE 1% INJ 10MG/ML (20 ML MDV) ONE (07:28)
[2019-03-06] MEDS ORDERED: fentaNYL (PF) 50 MCG/ML 2 ML AMP ONE (07:28)
[2019-03-06] MEDS ORDERED: ROCURONIUM BROMIDE 10 MG/ML 10 ML VIAL IV ONE (07:28)
[2019-03-06] MEDS ORDERED: MIDAZOLAM 2 MG/2 ML VIAL ONE (07:28)
[2019-03-06] MEDS ORDERED: PROPOFOL 10 MG/ML 20 ML VIAL IV ONE (07:28)
[2019-03-06 07:36] LABS: Glucose,Whole Blood 274 mg/dL (75-99)
[2019-03-06] MEDS ORDERED: BUPIVACAINE (PF) 0.25% 30 ML VIAL SQ ONE (08:14)
[2019-03-06 09:35] LABS: Glucose,Whole Blood 315 mg/dL (75-99)
[2019-03-06] MEDS ORDERED: IOPAMIDOL-370 50ML BTL IRRIGATION ONE (09:35)
[2019-03-06] MEDS ORDERED: ONDANSETRON 4 MG/2 ML VIAL IVP PRN (09:42)
[2019-03-06] MEDS ORDERED: KETOROLAC 30 MG/ML 1 ML VIAL IVP PRN (09:42)
[2019-03-06 09:52] LABS: Glucose,Whole Blood 333 mg/dL (75-99)
--- NOTE | 2019-03-06 09:52 | FL ---
EXAMINATION TYPE: FL urography retrograde DATE OF EXAM: 03/06/2019 COMPARISON: NONE HISTORY: Possible leak TECHNIQUE: Fluoroscopy. R/O possible leak after hysterectomy. 30 sec fluoro. 4 images scanned IMPRESSION: As Above.
--- NOTE | 2019-03-06 09:54 | P.OP ---
Date of Procedure: 03/06/19 Preoperative Diagnosis: MANAN-3 and endometrial hyperplasia Postoperative Diagnosis: Same with incidental notation of questionable right renal disease Procedure(s) Performed: Robotic-assisted laparoscopic hysterectomy with bowel bilateral salpingectomy, diagnostic cystoscopy and intraoperative urology consultation please see his dictation Anesthesia: LEEANNA Surgeon: Morgan Alex Kennel Keeper #1: Garima Leyva Estimated Blood Loss (ml): 20 Pathology: other (Uterus, cervix and fallopian tubes) Condition: stable Disposition: floor Operative Findings: Unremarkable female pelvic anatomy. During cystoscopy no flow was noted from the right ureteral jets. Intraoperative consultation from Dr. Galloway please see his dictation Description of Procedure: Patient was taken to the operating suite where a general anesthetic was found be adequate. She was prepped and draped in the normal sterile fashion placed in dorsal lithotomy position. Initially a weighted speculum was inserted into the vagina and the anterior lip of the cervix was identified and grasped with Allis clamp and cervix was then measured 8 cm and the cup size was measured 2.5 cm Candis manipulator was inserted without difficulty with strings attached at 3 and 9 for assist in removal. Once completed incidents removed and Esparza cath was placed. Gloves were then changed and attention was turned to the abdominal portion procedure where 2 mL of quarter percent Marcaine was injected periumbilically. Through this injected anesthetic a 5 mm skin incision was made and through this incision under direct visualization with an optical trocar and sleeve the camera was inserted. Once peritoneal placement was assured gas was left fully insufflate the abdomen and patient was then placed in steep Trendelenburg position. 2 lateral ports were then placed 10-12 cm from from the umbilicus just inferior to the umbilicus and a fourth port and sleeve was inserted through a 1 cm incision between the left lateral and medial ports. Robot was then brought in fully docked once robotic camera port was inserted. Once fully docked a scissor was placed in the one arm and a [place] grasper in the 2 arm and I broke scrub and went to the console. Observations [place] noted. No gross pathology noted therefore uterus was elevated and tipped to the right side where the fallopian tube was undermined cauterized and cut to approximately 2 cm from the uterine cornu and then the utero-ovarian ligament was cauterized and transected and Reiling was cauterized and transected through the broad ligament tissues and mesosalpinx. At this point anterior posterior leafs of the broad lid were sharply dissected down inferiorly and sterilization of the uterine vascular was done. Bladder flap was then identified elevated and entered with Metzenbaum scissors using the Maryland to undermine the Metzenbaum scissor to incise this was carried across face uterus with out difficulty and the bladder was then dissected out of the operative field. Once this was completed tipping uterus to left-hand side the right side was developed in similar fashion. Once completed following was blown up in the Candis manipulator and an anterior colpotomy was made. We did follow the blue couple in circumferential fashion counterclockwise cheating head when necessary to maintain excellent hemostasis. Once cervix was 3 and 60 uterus and cervix were brought into the vagina to maintain pneumoperitoneum. No bleeding is noted across any of the pedicles therefore incidents were exchanged for make suture cut and cardia grasper and using to OB lock suture the vaginal cuff was closed. Pelvis was then irrigated and instruments removed. Gas was allowed to expel from the abdomen 5 deep breaths were provided. 4-0 Vicryl used to close incision subcuticular. During this process I did do a cystoscopy. Excellent flow was noted from the left ureteral jets, however no flow was noted from the right ureteral jets. Due to and extend weight. Without seeing any flow we did consult urology who arrived and did a retrograde pyelogram under fluoroscopy. There was no kinking or damage to the ureter. As such I suspect there may be some kidney disease and we'll notified medicine of this during their evaluation and consultation for help in assisting control her postop sugar problems. All incidents were then removed. Sponge, lap, needle counts were all correct 2. Patient was then taken to the recovery room in stable and satisfactory condition.
[2019-03-06] MEDS: HEPARIN SODIUM,PORCINE 5,000 UNIT/ML 1 ML VIAL SQ SCH ×2 (10:35→20:31)
--- NOTE | 2019-03-06 10:48 | P.OP ---
Date of Procedure: 03/06/19 Preoperative Diagnosis: Oliguria Postoperative Diagnosis: Same Procedure(s) Performed: Cystoscopy, right retrograde pyelogram Anesthesia: LEEANNA Surgeon: Ananth Galloway Estimated Blood Loss (ml): 0 Pathology: none sent Condition: stable Disposition: PACU Indications for Procedure: The patient is a 28-year-old white female who underwent a robotic hysterectomy. Dr. Alex performed cystoscopy following the hysterectomy. Clear urine was noted to efflux from the left ureteral orifice, but none was seen on the right. Operative Findings: No evidence of right ureteral injury. Description of Procedure: I entered the operating room with the patient under general anesthesia, positioned in the dorsolithotomy position. The 30 lens was used to introduce the 19-Liberian Stortz cystoscopic sheath through the urethra and into the bladder under direct vision. Clear urine effluxed from the left ureteral orifice. The right ureteral orifice appeared normal, but no urine effluxed was seen on that side. The bladder was inspected. No tumors or foreign bodies were seen. There was no evidence of bladder trauma. Using a 10-Liberian cone-tip catheter, a right retrograde pyelogram was performed. The distal two thirds of the ureter was visualized on fluoroscopy and appeared normal. The proximal ureter could not be seen due to patient positioning, but there was no reason to suspect an injury in this region. Therefore, the cystos cope was removed and the procedure was terminated. The patient tolerated the procedure well was taken to the recovery room in stable condition.
[2019-03-06 11:16] LABS: Glucose,Whole Blood 322 mg/dL (75-99)
[2019-03-06 12:24] LABS: Glucose,Whole Blood 289 mg/dL (75-99)
[2019-03-06] MEDS ORDERED: INSULIN DETEMIR (LEVEMIR) 100 UNIT/ML SYR SQ SCH ×2 (12:28→21:00)
[2019-03-06] MEDS ORDERED: INSULIN NPH 300 UNIT/3 ML VIAL SQ ONE (13:00)
[2019-03-06] MEDS ORDERED: SODIUM CHLORIDE 0.9% 1,000 ML IV ONE ×2 (13:36)
[2019-03-06 16:54] LABS: Glucose,Whole Blood 305 mg/dL (75-99)
[2019-03-06] MEDS: INSULIN ASPART (NovoLOG) 100 UNIT/ML VIAL SQ SCH ×2 (17:41→20:30)
[2019-03-06 18:46] LABS: Hemoglobin A1C 11.5 % (4.0-6.0)
[2019-03-06 20:29] LABS: Glucose,Whole Blood 255 mg/dL (75-99)
[2019-03-06] MEDS: Acetaminophen-Codeine 300-30mg TAB PO PRN (20:40)
[2019-03-06] MEDS ORDERED: ATORVASTATIN 10 MG TAB PO SCH (21:00)
[2019-03-06] MEDS ORDERED: INSULIN GLARGINE HUM REC ANLOG 10 UNIT SQ SCH (21:00)
[2019-03-06] MEDS ORDERED: SENNOSIDES-DOCUSATE SODIUM 1 EACH TAB PO SCH (22:15)
[2019-03-07] MEDS: Acetaminophen-Codeine 300-30mg TAB PO PRN (04:50)
[2019-03-07] MEDS: LACTATED RINGERS 1,000 ML IV SCH (06:00)
--- NOTE | 2019-03-07 07:43 | CONS ---
CONSULTATION DATE OF CONSULTATION: 03/06/2019 REASON FOR CONSULTATION: Medical management requested by Dr. Alex. CONSULTATION: This is a very pleasant 28-year-old patient who follows with Dr. Craig out of [facility]. Chronic stable medical conditions include polycystic ovarian disease, polycystic kidney disease, obesity BMI 33.8. Patient is a long-standing diabetic. Does take Lantus about 14 units at night. She used to follow up with Dr. Tyler, the conflict resolution professional. Then her insurance stopped paying for the same, hence she has not seen her for quite some time. Normally, patient's sugars run in the 300s. Patient was found to have abnormal cells and today underwent hysterectomy and bilateral salpingectomy by Dr. Alex. Patient has got a Esparza catheter. Pain is controlled. Sugars were running high post surgery and I was consulted for the same. At that time, I did give her 6 units of NPH and sliding scale. REVIEW OF SYSTEMS: CONSTITUTIONAL: Tired. HEENT: None. RESPIRATORY: None. GASTROINTESTINAL: None. GASTROINTESTINAL: None. GENITOURINARY: As above with a Esparza catheter. DERMATOLOGICAL; None. HEMATOLOGIC: None. LYMPHATIC: None. PSYCHIATRY: None. NEUROLOGICAL: None. 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 PAST SURGICAL HISTORY: Cholecystectomy, cardiac catheterization, left knee surgery for meniscus, ACL repair. SOCIAL HISTORY: Patient has got 5 kids at home. . Homemaker. Drinks alcohol rarely. Does not smoke. FAMILY HISTORY: Reviewed, noncontributory to presentation. HOME MEDICATIONS: 1. Propranolol 10 mg in the morning. 2. Lantus 10 units at night. 3. Lipitor 10 mg at night. 4. Aspirin 81 mg daily. ALLERGIES: Mainly to food products. Refer to the electronic chart for this from admission. PHYSICAL EXAMINATION: Temperature 98.3, pulse 101, respiratory rate 18, blood pressure 110/73, pulse ox 92% on room air. GENERAL APPEARANCE: Well built, BMI 33.8. Lying in bed, not in distress. EYES: Pupils equal, conjunctivae normal. HEENT: External ears normal, nose normal. Oral cavity normal. NECK: JVD not raised. Mass not palpable. RESPIRATORY: Effort normal, lungs fair entry. CARDIOVASCULAR: First and second sounds no edema. ABDOMEN: Has got tapes on the laparoscopic site. Minimal tenderness. No guarding or rigidity. Liver and spleen are palpable. Esparza catheter in place. LYMPHATIC: No lymph nodes palpable in the neck and axilla. PSYCHIATRY: Alert and oriented x3. Mood and affect normal. NEUROLOGICAL: Pupils equal. Cranial nerves grossly intact power sensation grossly intact. INVESTIGATIONS: White count 7.8, hemoglobin 13.5, platelets 202. HB A1c was 11.5. Accu-Cheks this morning was 274, then 315 and 333. ASSESSMENT: 1. Diabetes mellitus type 2, chronically on insulin, uncontrolled. 2. Polycystic kidney disease. 3. Polycystic ovarian disease. 4. Obesity, body mass index 33.8. PLAN: I had a lengthy talk with the patient. The patient's Levemir/Lantus is very expensive, cost her about 600 dollars every 3 months. She is also taking a less dose because of consumer of insulin. The short-acting insulin also very expensive for her. I did discuss with her taking the Humulin 70/30, which is far less expensive about 40 dollars, she is agreeable to the same. At the present time starting tomorrow morning will start her on 15 units before breakfast and supper and 6 units before lunch. Will watch her sugars for 24 hours. If the sugars are reasonable, she should be able to be discharged tomorrow evening and then she can follow up with the family doctor. Care was discussed in detail with the patient. Will also check the lipid profile for the patient. Thank you, Dr. Alex. VAZQUEZ / CHARN: [id number] /
[2019-03-07 07:45] LABS: Glucose,Whole Blood 219 mg/dL (75-99)
[2019-03-07] MEDS: HEPARIN SODIUM,PORCINE 5,000 UNIT/ML 1 ML VIAL SQ SCH (08:18)
[2019-03-07] MEDS: metFORMIN 500 MG TAB PO SCH ×2 (08:18→17:19)
[2019-03-07] MEDS: INSULN ASP PRT/INSULIN ASPART 100 UNIT/ML 10 ML VIAL SQ SCH ×2 (08:19→17:19)
[2019-03-07] MEDS: INSULIN ASPART (NovoLOG) 100 UNIT/ML VIAL SQ SCH ×3 (08:19→17:19)
--- NOTE | 2019-03-07 08:44 | P.PN ---
Progress Note - Text Progress Note Date: 03/07/19 Status post total laparoscopic hysterectomy with bilateral salpingectomy postop day #1 Patient is doing well today, seen and examined at bedside. She denies nausea, vomiting, chest pain, shortness of breath or calf pain. Her pain is well- controlled with minimal Tylenol 3 use. She is ambulating and voiding without difficulty. Medicine did see her yesterday and had a discussion with her about insulin that may be more affordable. She is going to try insulin regimen today and hopefully of her sugars are little better controlled she can go home this evening. Her incisions are clean, dry, intact.
[2019-03-07] MEDS ORDERED: ASPIRIN 81 MG PO SCH (09:00)
[2019-03-07] MEDS ORDERED: PROPRANOLOL 10 MG TAB PO SCH (09:00)
[2019-03-07 11:41] VITALS: BMI 33.8
[2019-03-07 11:52] LABS: Glucose,Whole Blood 255 mg/dL (75-99)
[2019-03-07 12:11] LABS: Cholesterol 153 mg/dL (<200); HDL Cholesterol 24 mg/dL (40-60); LDL Cholesterol,Calculated 65 mg/dL (0-99); Triglycerides 320 mg/dL (<150)
[2019-03-07] MEDS ORDERED: INSULN ASP PRT/INSULIN ASPART 100 UNIT/ML 10 ML VIAL SQ SCH (12:30)
[2019-03-07 14:39] VITALS: BP 97/63; PULSE 86; RESP 16; TEMP 98.9
[2019-03-07 16:53] LABS: Glucose,Whole Blood 187 mg/dL (75-99)
--- NOTE | 2019-03-08 06:59 | PN ---
PROGRESS NOTE DATE OF SERVICE: 03/07/2019 PRESENTING COMPLAINT: Hysterectomy. INTERVAL HISTORY: This patient is status post hysterectomy and salpingectomy. The patient doing better this morning. I started this patient this morning on Novolin 70/30 mix. Otherwise, patient is feeling better. Esparza catheter has been taken out. REVIEW OF SYSTEMS: Done for constitutional, cardiovascular, GI, pulmonary; relevant findings as above. CURRENT MEDICATIONS: Reviewed in the electronic records from today. EXAMINATION: Temperature 98.9, pulse 86, respirations 16, blood pressure 100/64, pulse ox 94 percent on room air. GENERAL APPEARANCE: Lying in bed, comfortable. EYES: Pupils equal. Conjunctivae normal. NECK: JVD not raised. Mass not palpable. Respiratory effort normal. LUNGS: Clear. CARDIOVASCULAR: First and second sounds. No edema. ABDOMEN: Soft, nontender. Liver and spleen not palpable. PSYCHIATRY: Alert and oriented x3. Mood and affect normal. INVESTIGATIONS: Accu-Cheks 219, 255, 187. LDL 65. ASSESSMENT: 1. Diabetes mellitus type 2, chronically on insulin, uncontrolled. 2. Polycystic kidney disease. 3. Polycystic ovarian disease. 4. Obesity, BMI 33.8. 5. Status post hysterectomy and bilateral salpingectomy. PLAN: Had a lengthy talk with the patient. I have adjusted the patient's insulin and patient will be discharged home on Humulin 70/30 on the dose of 22 units before breakfast and supper and 6 units before lunch. The patient to keep her Accu-Cheks and follow up with the PCP. Prescription was sent to the pharmacy and handwritten prescriptions given. This also discussed with the nurse. Questions were answered. Total time spent today was about 40 minutes with over 25 minutes of discussion. Thank you Dr. Alex. VAZQUEZ / GARY: [id number] /
== END 2019-03-07 17:58 | disposition home or self-care (01) ==
LOC: OR 06:09 → 4FBP 09:45 → 4MS4W 12:09 → OR 03-07 17:58
PROVIDERS: ATTEND Obstetrics & Gynecology
DX: D06.0 Carcinoma in situ of endocervix (principal); D07.0 Carcinoma in situ of endometrium; K66.8 Other specified disorders of peritoneum; E28.2 Polycystic ovarian syndrome; E11.9 Type 2 diabetes mellitus without complications; E66.9 Obesity, unspecified; Q61.3 Polycystic kidney, unspecified; Z68.33 Body mass index [BMI] 33.0-33.9, adult; Z79.4 Long term (current) use of insulin; Z79.899 Other long term (current) drug therapy; Z86.73 Personal history of transient ischemic attack (TIA), and cerebral infarction without residual deficits; H54.7 Unspecified visual loss; Z90.49 Acquired absence of other specified parts of digestive tract; Z82.3 Family history of stroke; Z83.3 Family history of diabetes mellitus; Z82.49 Family history of ischemic heart disease and other diseases of the circulatory system; Z91.040 Latex allergy status; Z91.018 Allergy to other foods; Z91.010 Allergy to peanuts
CPT/HCPCS: 81025; 88305; 80061; 85025; 88309; 83036; 74420; 58552; 51610; C1758 ×2; J2250; J1644 ×2; J2710; J0690; J2405; J2001; J3010; J1100; J0330; J2704; Q9967; 86850; 86900; 86901

== ENCOUNTER 2019-08-22 17:38 | Emergency (ER) | payer BC ==
[2019-08-22] MEDS ORDERED: ASPIRIN 81 MG PO STA (18:03)
[2019-08-22] MEDS ORDERED: SODIUM CHLORIDE 0.9% 1,000 ML IV STA (18:03)
[2019-08-22] MEDS ORDERED: KETOROLAC 30 MG/ML 1 ML VIAL IVP STA (18:03)
[2019-08-22 18:05] LABS: Glucose,Whole Blood 279 mg/dL (75-99)
[2019-08-22] MEDS ORDERED: ONDANSETRON 4 MG/2 ML VIAL IVP STA ×2 (18:17→19:50)
--- NOTE | 2019-08-22 18:26 | ED ---
General Adult HPI - General Chief complaint: Chest Pain Stated complaint: chest pain/vomiting Time Seen by Provider: 08/22/19 17:51 Source: patient Mode of arrival: ambulatory Limitations: no limitations - History of Present Illness Initial comments: Patient is a 29-year-old female, with past medical history of diabetes, irregular heartbeat, presenting to emergency Department with complaints of nausea, vomiting as well as chest pain started this morning. Patient states she has a nauseous feeling as well as chest pain before she vomits. Patient states she does have regular visits with her fiberglass luggage molder secondary to "irregular heartbeat." She has had a stress test and a heart catheterization with no abnormalities found. Patient denies recent fever, chills. She does have mild shortness of breath secondary to the vomiting. She states she feels like the chest pains are secondary to the vomiting and only lasts for a few seconds and then she has a dull ache. She denies any abdominal pains. She does have loose stools when she is vomiting. She denies any urinary complaints. She denies recent travel or history of blood clots. She denies being secondary to hysterectomy. She has no other complaints at this time. On arrival to the ER, vital signs are stable. - Related Data Home Medications Medication Instructions Recorded Confirmed Atorvastatin [Lipitor] 10 mg PO HS 02/17/14 03/06/19 Aspirin EC [Ecotrin Low Dose] 81 mg PO DAILY 07/25/18 03/06/19 Propranolol HCl 10 mg PO QAM 07/25/18 03/06/19 Previous Rx's Medication Instructions Recorded Acetaminophen-Codeine 300-30mg 1 each PO Q4HR PRN #20 tab 03/07/19 [Tylenol w/codeine #3] Insuln Asp Prt/Insulin Aspart 6 unit SQ AC-LUNCH #1 vial 03/07/19 [NovoLOG MIX 70-30 VIAL] Insuln Asp Prt/Insulin Aspart 22 unit SQ AC-BID #1 vial 03/07/19 [NovoLOG MIX 70-30 VIAL] metFORMIN HCL [Glucophage] 500 mg PO BID-W/MEALS #60 tab 03/07/19 Ondansetron Odt [Zofran Odt] 4 mg PO Q8HR PRN #10 tab 08/22/19 Allergies Allergy/AdvReac Type Severity Reaction Status Date / Time Mushroom Allergy Severe Unknown Verified 08/22/19 17:41 Finley Allergy Unknown Verified 08/22/19 17:41 caffeine Allergy MAKES HER Verified 08/22/19 17:41 "TWITCH" garlic Allergy Unknown Verified 08/22/19 17:41 latex Allergy Rash/Hives/ Verified 08/22/19 17:41 itching peanut Allergy Rash/Hives Verified 08/22/19 17:41 Pork/Porcine Containing Allergy Rash/Hives Verified 08/22/19 17:41 Products shellfish derived [Shellfish] Allergy Unknown Verified 08/22/19 17:41 tree nut [Nut] Allergy Rash/Hives Verified 08/22/19 17:41 Review of Systems ROS Statement: Those systems with pertinent positive or pertinent negative responses have been documented in the HPI. ROS Other: All systems not noted in ROS Statement are negative. 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 Past Anesthesia/Blood Transfusion Reactions: Postoperative Nausea & Vomiting (PONV) Additional Past Anesthesia/Blood Transfusion Reaction / Comment(s): ANXIOUS POST-OP Past Psychological History: No Psychological Hx Reported Smoking Status: Never smoker Past Alcohol Use History: None Reported, Occasional Past Drug Use History: None Reported - Past Family History Father Family Medical History: No Reported History Mother Family Medical History: CVA/TIA, Diabetes Mellitus, Myocardial Infarction ([place]) General Exam - General Exam Comments Initial Comments: GENERAL: Well-appearing, well-nourished and in no acute distress. Slightly uncomfortable secondary to nauseous feeling. HEAD: Atraumatic, normocephalic. EYES: Pupils equal round and reactive to light, extraocular movements intact, sclera anicteric, conjunctiva are normal. ENT: TMs normal, nares patent, oropharynx clear without exudates. Moist mucous membranes. NECK: Normal range of motion, supple without lymphadenopathy or JVD. LUNGS: Breath sounds clear to auscultation bilaterally and equal. No wheezes rales or rhonchi. HEART: Slightly tachycardia rate and rhythm without murmurs, rubs or gallops. No pain with palpation of the chest wall. ABDOMEN: Soft, nontender, normoactive bowel sounds. No guarding, no rebound. No masses appreciated. : Deferred EXTREMITIES: Normal range of motion, no pitting or edema. No clubbing or cyanosis. NEUROLOGICAL: Cranial nerves II through XII grossly intact. Normal speech, normal gait. PSYCH: Normal mood, normal affect. SKIN: Warm, Dry, normal turgor, no rashes or lesions noted. Limitations: no limitations Course Vital Signs 08/22/19 08/22/19 08/22/19 17:41 18:53 20:02 Temperature 97.9 F 97.3 F L Pulse Rate 66 95 84 Respiratory 16 18 18 Rate Blood Pressure 123/76 113/70 112/63 O2 Sat by Pulse 96 95 95 Oximetry EKG Findings - EKG Comments: EKG Findings:: Ventricular rate 104, P on arrival 174, QTC 476. Sinus tachycardia, no acute ST segment elevations. Similar to previous EKG in July. Medical Decision Making - Medical Decision Making Patient is a 29-year-old female presenting with nausea, vomiting, chest pain that started today. Patient's vital signs are normal. Patient's exam is unremarkable. EKG shows no acute changes. Chest x-ray is normal. Lab work including troponin, d-dimer are all within normal limits. Urine shows no signs of infection. I discussed these findings with the patient. Patient was given fluids, Zofran and Toradol and reports improvement in her symptoms. I discussed with patient that the chest pain she is having is most likely related to the vomiting episodes most likely related to gastroenteritis. Patient has had the same symptoms in the past. Patient will be discharged home with Zofran. She is in agreement with this plan of care. Return parameters were discussed with the patient and she verbalized understanding. Case is discussed with Dr. Parekh who is in agreement. - Lab Data Result diagrams: 08/22/19 18:36 08/22/19 18:36 Lab Results 08/22/19 08/22/19 08/22/19 Range/Units 18:02 18:36 18:36 WBC 12.1 H (3.8-10.6) k/uL RBC 5.36 (3.80-5.40) m/uL Hgb 15.1 (11.4-16.0) gm/dL Hct 45.5 (34.0-46.0) % MCV 84.9 (80.0-100.0) fL MCH 28.2 (25.0-35.0) pg MCHC 33.2 (31.0-37.0) g/dL RDW 13.0 (11.5-15.5) % Plt Count 232 (150-450) k/uL Neutrophils % 87 % Lymphocytes % 7 % Monocytes % 3 % Eosinophils % 2 % Basophils % 0 % Neutrophils # 10.5 H (1.3-7.7) k/uL Lymphocytes # 0.9 L (1.0-4.8) k/uL Monocytes # 0.3 (0-1.0) k/uL Eosinophils # 0.2 (0-0.7) k/uL Basophils # 0.0 (0-0.2) k/uL PT (9.0-12.0) sec INR (<1.2) APTT (22.0-30.0) sec D-Dimer (<0.60) mg/L FEU Sodium 137 (137-145) mmol/L Potassium 3.9 (3.5-5.1) mmol/L Chloride 101 (98-107) mmol/L Carbon Dioxide 22 (22-30) mmol/L Anion Gap 14 mmol/L BUN 16 (7-17) mg/dL Creatinine 0.51 L (0.52-1.04) mg/dL Est GFR (CKD-EPI)AfAm >90 (>60 ml/min/1.73 sqM) Est GFR (CKD-EPI)NonAf >90 (>60 ml/min/1.73 sqM) Glucose 295 H (74-99) mg/dL POC Glucose (mg/dL) 279 H (75-99) mg/dL POC Glu Branch Store Manager ID Leana Tim Calcium 9.3 (8.4-10.2) mg/dL Magnesium 1.6 (1.6-2.3) mg/dL Total Bilirubin 1.0 (0.2-1.3) mg/dL AST 108 H (14-36) U/L ALT 107 H (4-34) U/L Alkaline Phosphatase 110 (38-126) U/L Troponin I (0.000-0.034) ng/mL Total Protein 8.1 (6.3-8.2) g/dL Albumin 4.6 (3.5-5.0) g/dL Acetone, Qual Negative (Negative) 08/22/19 08/22/19 Range/Units 18:36 18:36 WBC (3.8-10.6) k/uL RBC (3.80-5.40) m/uL Hgb (11.4-16.0) gm/dL Hct (34.0-46.0) % MCV (80.0-100.0) fL MCH (25.0-35.0) pg MCHC (31.0-37.0) g/dL RDW (11.5-15.5) % Plt Count (150-450) k/uL Neutrophils % % Lymphocytes % % Monocytes % % Eosinophils % % Basophils % % Neutrophils # (1.3-7.7) k/uL Lymphocytes # (1.0-4.8) k/uL Monocytes # (0-1.0) k/uL Eosinophils # (0-0.7) k/uL Basophils # (0-0.2) k/uL PT 10.2 (9.0-12.0) sec INR 1.0 (<1.2) APTT 22.8 (22.0-30.0) sec D-Dimer 0.38 (<0.60) mg/L FEU Sodium (137-145) mmol/L Potassium (3.5-5.1) mmol/L Chloride (98-107) mmol/L Carbon Dioxide (22-30) mmol/L Anion Gap mmol/L BUN (7-17) mg/dL Creatinine (0.52-1.04) mg/dL Est GFR (CKD-EPI)AfAm (>60 ml/min/1.73 sqM) Est GFR (CKD-EPI)NonAf (>60 ml/min/1.73 sqM) Glucose (74-99) mg/dL POC Glucose (mg/dL) (75-99) mg/dL POC Glu Branch Store Manager ID Calcium (8.4-10.2) mg/dL Magnesium (1.6-2.3) mg/dL Total Bilirubin (0.2-1.3) mg/dL AST (14-36) U/L ALT (4-34) U/L Alkaline Phosphatase (38-126) U/L Troponin I <0.012 (0.000-0.034) ng/mL Total Protein (6.3-8.2) g/dL Albumin (3.5-5.0) g/dL Acetone, Qual (Negative) Disposition Clinical Impression: Atypical chest pain, Nausea vomiting and diarrhea Disposition: HOME SELF-CARE Condition: Stable Instructions (If sedation given, give patient instructions): Acute Nausea and Vomiting (ED) Additional Instructions: Please return to the Emergency Department if symptoms worsen or any other concerns, such as fever, increase in chest pain, shortness of breath. Use Zofran as needed for nausea and vomiting. Follow-up with PCP. Prescriptions: Ondansetron Odt [Zofran Odt] 4 mg PO Q8HR PRN #10 tab PRN Reason: Nausea Is patient prescribed a controlled substance at d/c from ED?: No Referrals: Peter Craig MD [Primary Care Provider] - 1-2 days
[2019-08-22 18:52] LABS: Basophils % (A) 0 %; Eosinophils # (A) 0.2 k/uL (0-0.7); Eosinophils % (A) 2 %; HCT 45.5 % (34.0-46.0); HGB 15.1 gm/dL (11.4-16.0); Lymphocytes # (A) 0.9 k/uL (1.0-4.8); Lymphocytes % (A) 7 %; MCH 28.2 pg (25.0-35.0); MCHC 33.2 g/dL (31.0-37.0); MCV 84.9 fL (80.0-100.0); Mean Platelet Volume 8.9; Monocytes # (A) 0.3 k/uL (0-1.0); Monocytes % (A) 3 %; Neutrophils # (A) 10.5 k/uL (1.3-7.7); Neutrophils % (A) 87 %; Platelet Count 232 k/uL (150-450); RBC 5.36 m/uL (3.80-5.40); WBC 12.1 k/uL (3.8-10.6)
--- NOTE | 2019-08-22 18:52 | XR ---
EXAMINATION TYPE: XR chest 2V DATE OF EXAM: 08/22/2019 COMPARISON: 07/25/2018 HISTORY: Nausea and vomiting TECHNIQUE: 2 views FINDINGS: Heart and mediastinum are normal. Lungs are clear. Diaphragm is normal. There are chest gilbert ds. There is thoracic dextroscoliosis. IMPRESSION: No cardiopulmonary disease. Scoliotic deformity.
[2019-08-22 18:53] VITALS: RESP 18
[2019-08-22 18:59] LABS: ALT 107 U/L (4-34); AST 108 U/L (14-36); African American GFR (CKD) >90 (>60 ml/min/1.73 sqM); Albumin 4.6 g/dL (3.5-5.0); Alkaline Phosphatase 110 U/L (38-126); Anion Gap 14 mmol/L; Blood Urea Nitrogen 16 mg/dL (7-17); Calcium 9.3 mg/dL (8.4-10.2); Carbon Dioxide 22 mmol/L (22-30); Chloride 101 mmol/L (98-107); Glucose 295 mg/dL (74-99); Magnesium 1.6 mg/dL (1.6-2.3); Non-African American GFR(CKD) >90 (>60 ml/min/1.73 sqM); Potassium 3.9 mmol/L (3.5-5.1); Sodium 137 mmol/L (137-145); Total Protein 8.1 g/dL (6.3-8.2)
[2019-08-22 19:32] LABS: D-Dimer 0.38 mg/L FEU (<0.60); Partial Thromboplastin Time 22.8 sec (22.0-30.0); Prothrombin Time 10.2 sec (9.0-12.0)
[2019-08-22 20:06] VITALS: BP 112/63; PULSE 84; TEMP 97.3
== END 2019-08-22 20:07 | disposition home or self-care (01) ==
LOC: EC 17:38
DX: R07.89 Other chest pain (principal); R11.2 Nausea with vomiting, unspecified; R19.7 Diarrhea, unspecified; E11.9 Type 2 diabetes mellitus without complications; Z79.82 Long term (current) use of aspirin; Z79.899 Other long term (current) drug therapy; Z91.018 Allergy to other foods; Z91.040 Latex allergy status; Z91.010 Allergy to peanuts; Z91.013 Allergy to seafood; Z86.73 Personal history of transient ischemic attack (TIA), and cerebral infarction without residual deficits; Z95.5 Presence of coronary angioplasty implant and graft
CPT/HCPCS: 36415; 93005; 85379; 80053; 82009; 83735; 84484; 85025; 85610; 85730; 71046; 99285; 96374; 96375; 96376; 96361 ×2; J2405; J1885

== ENCOUNTER 2023-02-14 10:05 | Emergency (ER) | payer BC ==
[2023-02-14 10:18] VITALS: TEMP 98.4
[2023-02-14] MEDS ORDERED: SODIUM CHLORIDE 0.9% 1,000 ML IV STA (10:28)
--- NOTE | 2023-02-14 10:34 | ED ---
General Adult HPI - General Chief complaint: Dizziness Stated complaint: dizzy Time Seen by Provider: 02/14/23 10:20 Source: patient, RN notes reviewed, old records reviewed Mode of arrival: ambulatory Limitations: no limitations - History of Present Illness Initial comments: 32-year-old female with type 2 diabetes presenting for evaluation of dizziness. Symptoms began this morning. When she woke. Patient denies vomiting or diarrhea. She does have history of diabetes and states that her sugars are typically in the 3-400 range. She had obtained a blood glucose at home and states that they were at baseline. She denies vomiting or diarrhea. No fever. She does complain of numbness to the right fingers. No focal weakness. - Related Data Home Medications Medication Instructions Recorded Confirmed Atorvastatin [Lipitor] 10 mg PO HS 02/17/14 02/14/23 Aspirin EC [Ecotrin Low Dose] 81 mg PO DAILY 07/25/18 02/14/23 Propranolol HCl 10 mg PO DAILY 07/25/18 02/14/23 Insulin Aspart [NovoLOG Flexpen] 15 units SQ AC-TID 02/14/23 02/14/23 Insulin Aspart [NovoLOG Flexpen] See Protocol SQ AC-TID 02/14/23 02/14/23 Insulin Degludec [Tresiba 50 units SQ HS 02/14/23 02/14/23 Flextouch U-100 Pen] Allergies Allergy/AdvReac Type Severity Reaction Status Date / Time Mushroom Allergy Severe Unknown Verified 02/14/23 11:37 Hendricks Allergy Unknown Verified 02/14/23 11:37 garlic Allergy Unknown Verified 02/14/23 11:37 latex Allergy Rash/Hives/ Verified 02/14/23 11:37 itching peanut Allergy Rash/Hives Verified 02/14/23 11:37 Pork/Porcine Containing Allergy Rash/Hives Verified 02/14/23 11:37 Products shellfish derived [Shellfish] Allergy Unknown Verified 02/14/23 11:37 tree nut [Nut] Allergy Rash/Hives Verified 02/14/23 11:37 caffeine AdvReac MAKES HER Verified 02/14/23 11:37 "TWITCH" Review of Systems ROS Statement: Those systems with pertinent positive or pertinent negative responses have been documented in the HPI. ROS Other: All systems not noted in ROS Statement are negative. 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 Past Anesthesia/Blood Transfusion Reactions: Postoperative Nausea & Vomiting (PONV) Additional Past Anesthesia/Blood Transfusion Reaction / Comment(s): ANXIOUS POST-OP Past Psychological History: No Psychological Hx Reported Smoking Status: Never smoker Past Alcohol Use History: None Reported, Occasional Past Drug Use History: None Reported - Past Family History Father Family Medical History: No Reported History Mother Family Medical History: CVA/TIA, Diabetes Mellitus, Myocardial Infarction (ID) General Exam Limitations: no limitations General appearance: alert, in no apparent distress Head exam: Present: atraumatic, normocephalic Eye exam: Present: normal appearance, PERRL ENT exam: Present: normal exam Neck exam: Present: normal inspection. Absent: tenderness, meningismus Respiratory exam: Present: normal lung sounds bilaterally. Absent: respiratory distress, wheezes Cardiovascular Exam: Present: regular rate, normal rhythm GI/Abdominal exam: Present: soft. Absent: distended, tenderness, guarding Extremities exam: Present: normal inspection, normal capillary refill Neurological exam: Present: alert, oriented X3, CN II-XII intact. Absent: motor sensory deficit (No limb ataxia, no weakness, strength is 5 out of 5 in all extremities.) Skin exam: Present: warm, dry, intact Course Vital Signs 02/14/23 10:15 Temperature 98.4 F Pulse Rate 70 Respiratory 20 Rate Blood Pressure 127/82 O2 Sat by Pulse 98 Oximetry Medical Decision Making - Medical Decision Making Was pt. sent in by a medical professional or institution (, PA, [employer], urgent care, hospital, or halfway...) When possible be specific @ -No Did you speak to anyone other than the patient for history (EMS, parent, family, police, friend...)? What history was obtained from this source @ -No Did you review nursing and triage notes (agree or disagree)? Why? @ -I reviewed and agree with nursing and triage notes Were old charts reviewed (outside hosp., previous admission, EMS record, old EKG, old radiological studies, urgent care reports/EKG's, halfway records)? Report findings @Reviewed previous head CTs Differential Diagnosis (chest pain, altered mental status, abdominal pain women, abdominal pain men, vaginal bleeding, weakness, fever, dyspnea, syncope, headache, dizziness, GI bleed, back pain, seizure, CVA, palpatations, mental health, musculoskeletal)? @ Differential Syncope: Valvular disease, hypertrophic cardiomyopathy, pulmonary embolism, tamponade, tachycardia, bradycardia, ID, hypovolemia, hemorrhage, dissection, anemia, intracranial hemorrhage, seizure, hypoglycemia, carbon monoxide poisoning, this is not meant to be an all-inclusive list. EKG interpreted by me (3pts min.). @ -Sinus rhythm rate of 73, ND interval 208, QRS duration 90, QTC 425, no ST segment elevation. X-rays interpreted by me (1pt min.). @ -None done CT interpreted by me (1pt min.). @ CT brain performed, negative for intracranial hemorrhage or mass effect U/S interpreted by me (1pt. min.). @ -None done What testing was considered but not performed or refused? (CT, X-rays, U/S, labs)? Why? @ -None What meds were considered but not given or refused? Why? @ -None Did you discuss the management of the patient with other professionals (pr ofessionals i.e. , PA, [facility], lab, RT, psych nurse, vp digital marketing social media and crm, dental mold maker, teacher, radio officer, director case management)? Give summary @ -No Was smoking cessation discussed for >3mins.? @ -No Was critical care preformed (if so, how long)? @ -No Were there social determinants of health that impacted care today? How? (Homelessness, low income, unemployed, alcoholism, drug addiction, transport ation, low edu. Level, literacy, decrease access to med. care, [facility], rehab)? @ -No Was there de-escalation of care discussed even if they declined (Discuss DNR or withdrawal of care, Hospice)? DNR status @ -No What co-morbidities impacted this encounter? (DM, HTN, Smoking, COPD, CAD, Cancer, CVA, ARF, Chemo, Hep., AIDS, mental health diagnosis, sleep apnea, morbid obesity)? @ -Uncontrolled diabetes Was patient admitted / discharged? Hospital course, mention meds given and route, prescriptions, significant lab abnormalities, going to OR and other pertinent info. @ -32-year-old female with lightheadedness, dizziness. Patient is in sinus rhythm with stable vitals. She had complained of some numbness to her right fingers and right toes. Head CT was negative for any acute intracranial abnormality. Patient has normal CBC, normal electrolyte with the exception of a elevated blood glucose which she states is chronic. Urinalysis showing 4+ glucose, no signs of infection. Patient's given IV hydration and instructed to follow-up with the primary care provider. Return parameters discussed. Undiagnosed new problem with uncertain prognosis? @ -No Drug Therapy requiring intensive monitoring for toxicity (Heparin, Nitro, Insulin, Cardizem)? @ -No Were any procedures done? @ -No Diagnosis/symptom? @ -[Dehydration, lightheadedness and paresthesia, hyperglycemia Acute, or Chronic, or Acute on Chronic? @ Acute Uncomplicated (without systemic symptoms) or Complicated (systemic symptoms)? @ -default Side effects of treatment? @ -No Exacerbation, Progression, or Severe Exacerbation? @ -No Poses a threat to life or bodily function? How? (Chest pain, USA, ID, pneumonia, PE, COPD, DKA, ARF, appy, cholecystitis, CVA, Diverticulitis, Homicidal, Suicidal, threat to staff... and all critical care pts) @ Low risk at this time - Lab Data Result diagrams: 02/14/23 10:29 02/14/23 10:29 Lab Results 02/14/23 02/14/23 02/14/23 Range/Units 10:29 10:29 10:29 WBC 9.7 (3.8-10.6) k/uL RBC 5.07 (3.80-5.40) m/uL Hgb 14.6 (11.4-16.0) gm/dL Hct 43.3 (34.0-46.0) % MCV 85.4 (80.0-100.0) fL MCH 28.9 (25.0-35.0) pg MCHC 33.8 (31.0-37.0) g/dL RDW 12.7 (11.5-15.5) % Plt Count 210 (150-450) k/uL MPV 9.4 Neutrophils % 70 % Lymphocytes % 23 % Monocytes % 4 % Eosinophils % 1 % Basophils % 1 % Neutrophils # 6.8 (1.3-7.7) k/uL Lymphocytes # 2.2 (1.0-4.8) k/uL Monocytes # 0.3 (0-1.0) k/uL Eosinophils # 0.1 (0-0.7) k/uL Basophils # 0.1 (0-0.2) k/uL PT 9.8 (9.0-12.0) sec INR 0.9 (<1.2) APTT 23.5 (22.0-30.0) sec Sodium (137-145) mmol/L Potassium (3.5-5.1) mmol/L Chloride (98-107) mmol/L Carbon Dioxide (22-30) mmol/L Anion Gap mmol/L BUN (7-17) mg/dL Creatinine (0.52-1.04) mg/dL Est GFR (CKD-EPI)AfAm (>60 ml/min/1.73 sqM) Est GFR (CKD-EPI)NonAf (>60 ml/min/1.73 sqM) Glucose (74-99) mg/dL Plasma Lactic Acid Blue (0.7-2.0) mmol/L Calcium (8.4-10.2) mg/dL Magnesium (1.6-2.3) mg/dL Total Bilirubin (0.2-1.3) mg/dL AST (14-36) U/L ALT (4-34) U/L Alkaline Phosphatase (38-126) U/L Troponin I (0.000-0.034) ng/mL Total Protein (6.3-8.2) g/dL Albumin (3.5-5.0) g/dL Urine Color Colorless Urine Appearance Clear (Clear) Urine pH 5.0 (5.0-8.0) Ur Specific Gratz 1.011 (1.001-1.035) Urine Protein Negative (Negative) Urine Glucose (UA) 4+ H (Negative) Urine Ketones Negative (Negative) Urine Blood Negative (Negative) Urine Nitrite Negative (Negative) Urine Bilirubin Negative (Negative) Urine Urobilinogen <2.0 (<2.0) mg/dL Ur Leukocyte Esterase Negative (Negative) 02/14/23 02/14/23 02/14/23 Range/Units 10:29 10:29 10:29 WBC (3.8-10.6) k/uL RBC (3.80-5.40) m/uL Hgb (11.4-16.0) gm/dL Hct (34.0-46.0) % MCV (80.0-100.0) fL MCH (25.0-35.0) pg MCHC (31.0-37.0) g/dL RDW (11.5-15.5) % Plt Count (150-450) k/uL MPV Neutrophils % % Lymphocytes % % Monocytes % % Eosinophils % % Basophils % % Neutrophils # (1.3-7.7) k/uL Lymphocytes # (1.0-4.8) k/uL Monocytes # (0-1.0) k/uL Eosinophils # (0-0.7) k/uL Basophils # (0-0.2) k/uL PT (9.0-12.0) sec INR (<1.2) APTT (22.0-30.0) sec Sodium 135 L (137-145) mmol/L Potassium 4.5 (3.5-5.1) mmol/L Chloride 97 L (98-107) mmol/L Carbon Dioxide 27 (22-30) mmol/L Anion Gap 11 mmol/L BUN 6 L (7-17) mg/dL Creatinine 0.45 L (0.52-1.04) mg/dL Est GFR (CKD-EPI)AfAm >90 (>60 ml/min/1.73 sqM) Est GFR (CKD-EPI)NonAf >90 (>60 ml/min/1.73 sqM) Glucose 375 H (74-99) mg/dL Plasma Lactic Acid Blue 2.7 H* (0.7-2.0) mmol/L Calcium 9.3 (8.4-10.2) mg/dL Magnesium 1.9 (1.6-2.3) mg/dL Total Bilirubin 0.6 (0.2-1.3) mg/dL AST 28 (14-36) U/L ALT 44 H (4-34) U/L Alkaline Phosphatase 80 (38-126) U/L Troponin I <0.012 (0.000-0.034) ng/mL Total Protein 7.6 (6.3-8.2) g/dL Albumin 4.3 (3.5-5.0) g/dL Urine Color Urine Appearance (Clear) Urine pH (5.0-8.0) Ur Specific Gratz (1.001-1.035) Urine Protein (Negative) Urine Glucose (UA) (Negative) Urine Ketones (Negative) Urine Blood (Negative) Urine Nitrite (Negative) Urine Bilirubin (Negative) Urine Urobilinogen (<2.0) mg/dL Ur Leukocyte Esterase (Negative) Disposition Clinical Impression: Dehydration, Hyperglycemia due to diabetes mellitus, Paresthesia Disposition: HOME SELF-CARE Condition: Fair Instructions (If sedation given, give patient instructions): Dizziness (ED), Paresthesia (ED), Diabetic Hyperglycemia (ED) Is patient prescribed a controlled substance at d/c from ED?: No Referrals: Harsh Romero DO [Primary Care Provider] - 1-2 days Time of Disposition: 12:27
[2023-02-14 11:04] LABS: Basophils # (A) 0.1 k/uL (0-0.2); Basophils % (A) 1 %; Eosinophils # (A) 0.1 k/uL (0-0.7); Eosinophils % (A) 1 %; HCT 43.3 % (34.0-46.0); HGB 14.6 gm/dL (11.4-16.0); Lymphocytes # (A) 2.2 k/uL (1.0-4.8); Lymphocytes % (A) 23 %; MCH 28.9 pg (25.0-35.0); MCHC 33.8 g/dL (31.0-37.0); MCV 85.4 fL (80.0-100.0); Mean Platelet Volume 9.4; Monocytes # (A) 0.3 k/uL (0-1.0); Monocytes % (A) 4 %; Neutrophils # (A) 6.8 k/uL (1.3-7.7); Neutrophils % (A) 70 %; Platelet Count 210 k/uL (150-450); RBC 5.07 m/uL (3.80-5.40); RDW 12.7 % (11.5-15.5); WBC 9.7 k/uL (3.8-10.6)
[2023-02-14 11:12] LABS: INR 0.9 (<1.2); Partial Thromboplastin Time 23.5 sec (22.0-30.0); Prothrombin Time 9.8 sec (9.0-12.0)
[2023-02-14 11:22] LABS: ALT 44 U/L (4-34); AST 28 U/L (14-36); African American GFR (CKD) >90 (>60 ml/min/1.73 sqM); Albumin 4.3 g/dL (3.5-5.0); Alkaline Phosphatase 80 U/L (38-126); Anion Gap 11 mmol/L; Blood Urea Nitrogen 6 mg/dL (7-17); Calcium 9.3 mg/dL (8.4-10.2); Carbon Dioxide 27 mmol/L (22-30); Chloride 97 mmol/L (98-107); Glucose 375 mg/dL (74-99); Magnesium 1.9 mg/dL (1.6-2.3); Non-African American GFR(CKD) >90 (>60 ml/min/1.73 sqM); Potassium 4.5 mmol/L (3.5-5.1); Sodium 135 mmol/L (137-145); Total Bilirubin 0.6 mg/dL (0.2-1.3); Total Protein 7.6 g/dL (6.3-8.2)
--- NOTE | 2023-02-14 11:22 | CT ---
EXAMINATION TYPE: CT brain wo con DATE OF EXAM: 02/14/2023 COMPARISON: 02/14/16 HISTORY: vertigo started today CT DLP: 1091.[address] of the brain was performed. The ventricles, basal cisterns and sulci overlying the cerebral convexities demonstrate a normal appe arance. There is no evidence for intracranial hemorrhage or sulcal effacement. No mass effects are seen. Osseous calvarium is intact. If symptoms persist consider MRI as clinically warranted. IMPRESSION: 1. No acute intracranial process is seen at this time.
[2023-02-14 12:07] LABS: Appearance,Urine Clear (Clear); Bilirubin,Urine Negative (Negative); Blood,Urine Negative (Negative); Color,Urine Colorless; Glucose,Urine (UA) 4+ (Negative); Ketones,Urine Negative (Negative); Leukocyte Esterase,Urine Negative (Negative); Nitrite,Urine Negative (Negative); Protein,Urine Negative (Negative); Specific Gravity,Urine 1.011 (1.001-1.035); Urobilinogen,Urine <2.0 mg/dL (<2.0)
[2023-02-14 12:36] VITALS: BP 119/69; PULSE 65; RESP 18
== END 2023-02-14 12:42 | disposition home or self-care (01) ==
LOC: EC 10:05
DX: E11.65 Type 2 diabetes mellitus with hyperglycemia (principal); E86.0 Dehydration; R20.2 Paresthesia of skin; Z79.4 Long term (current) use of insulin; Z79.82 Long term (current) use of aspirin; Z79.899 Other long term (current) drug therapy; Z91.040 Latex allergy status; Z91.013 Allergy to seafood; Z91.018 Allergy to other foods
CPT/HCPCS: 36415; 70450; 80053; 81003; 83605; 83735; 84484; 85025; 85610; 85730; 93005; 96360; 96361; 99284

== ENCOUNTER → 2024-10-31 | Outpatient (CLI) | payer BC ==
--- NOTE | 2024-11-01 01:24 | MR ---
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 Post contrast imaging was performed. Post IV contrast subtraction images were also submitted for review. IV Contrast: 9ml mL Gadavist FINDINGS: LOWER CHEST: No gross irregularity. ABDOMEN Liver: No evidence for cirrhosis. Signal dropout on chemical shift out of phase imaging. Gallbladder and Bile ducts: No evidence for ductal dilation, or biliary stricture or evidence of chol edocholithiasis. The gallbladder is within normal limits. Pancreas: No ductal dilation. No evidence for solid mass. Spleen: Normal for size. Adrenal glands: Left adrenal nodule measuring 12 mm. There is evidence of loss of signal on chemical shift of phase imaging. Kidneys: Severely atrophic right kidney with multiple simple appearing and slightly complex appearing cyst measuring up to 29 mm. No evidence for obstructive uropathy. No suspicious renal masses. Stomach and Bowel: No evidence for bowel wall thickening or evidence for obstruction. Retroperitoneum/Peritoneum: No evidence of pneumoperitoneum or free fluid. Vasculature: No aortic aneurysm. Musculoskeletal: The osseous structures appear intact. Mild scoliosis changes to the spine. Lymph Nodes: No gross evidence for lymphadenopathy. Abdominal wall: Fat-containing umbilical hernia. IMPRESSION: 1. Left adrenal nodule most compatible with lipid rich adrenal adenoma. 2. Severely atrophic right kidney with multiple simple and slightly complex renal cyst. 3. Hepatic steatosis. [facility], , 11/01/2024 1:22 AM
== END | disposition home or self-care (01) ==
LOC: RADMRIMAIN 14:50
PROVIDERS: ATTEND Family Medicine
DX: N26.1 Atrophy of kidney (terminal) (principal); E27.9 Disorder of adrenal gland, unspecified; N28.1 Cyst of kidney, acquired; K76.0 Fatty (change of) liver, not elsewhere classified
CPT/HCPCS: 74183; A9585